=== PATIENT | male | born 1930 | race Caucasian/White ===

== ENCOUNTER 2018-12-29 09:24 | Emergency (ER) | payer OTHER ==
[2018-12-29] MEDS ORDERED: LEVALBUTEROL 1.25 MG/3 ML NEB ONE ×2 (10:07→11:57)
[2018-12-29 10:21] LABS: Absolute Lymphocytes (CBC) 0.7 K/uL (0.7-4.9); Absolute Monocytes 0.7 K/uL (0.1-1.3); Absolute Neutrophil 3.9 K/uL (1.8-8.0); Basophils % 1.1 % (0-1.3); Eosinophils % 6.8 % (0-4.4); Hematocrit 38.6 % (39.6-49.0); Lymphocytes % 12.3 % (15.3-44.8); MPV 8.1 fL (7.6-11.3); Monocytes % 12.5 % (3.3-12.3)
[2018-12-29 10:35] LABS: BUN Blood Urea Nitrogen 24 mg/dL (7-18); Bicarbonate 27 mmol/L (21-32); Glucose Level 123 mg/dL (74-106); NT PRO-BNP 503 pg/mL (<450); Potassium 4.4 mmol/L (3.5-5.1); Sodium Level 141 mmol/L (136-145); Troponin (Emerg Dept Use Only) < 0.02 ng/mL (0.0-0.045)
--- NOTE | 2018-12-29 11:24 | RAD REPORT ---
EXAM DESCRIPTION: RAD - Chest Pa And Lat (2 Views) - 12/29/2018 11:16 am CLINICAL HISTORY: Cough;Dyspnea Chest pain. COMPARISON: Chest Pa And Lat (2 Views) dated 12/26/2018; Chest Pa And Lat (2 Views) dated 10/20/2017; C hest Single View dated 01/05/2016; CHEST SINGLE VIEW dated 05/19/2012 FINDINGS: The lungs are mildly emphysematous but clear. No focal infiltrate detected. The heart is u pper limit of normal in size. No displaced fractures. IMPRESSION: Mild COPD.
[2018-12-29] MEDS ORDERED: METHYLPREDNISOLONE 125 MG INJ ONE (11:57)
--- NOTE | 2018-12-29 13:33 | ER ---
Nurse's Notes [facility] Name: Gamal Reed Age: 88 yrs Sex: Male : 1930 Arrival Date: 12/29/2018 Time: 09:28 Bed 18 Private MD: Emerson Cain T Diagnosis: Wheezing;Dyspnea, unspecified Presentation: 12/29 09:42 Presenting complaint: Patient states: cough and difficulty breathing when laying flat. ss Pt reports he has been seeing his PCP for this and had an X-RAY recently which was negative. Has an appointment with a child welfare consultant next Wednesday, but states that he needs relief before then. Transition of care: patient was not received from another setting of care. Onset of symptoms is unknown. Risk Assessment: Do you want to hurt yourself or someone else? Patient reports no desire to harm self or others. Initial Sepsis Screen: Does the patient meet any 2 criteria? No. Patient's initial sepsis screen is negative. Does the patient have a suspected source of infection? No. Patient's initial sepsis screen is negative. Care prior to arrival: None. 09:42 Method Of Arrival: Ambulatory 09:42 Acuity: KELSY 3 Triage Assessment: 09:45 General: Appears in no apparent distress. comfortable, Behavior is calm, cooperative, bp appropriate for age. Respiratory: Reports shortness of breath cough that is non-productive, Onset: The symptoms/episode began/occurred at an unknown time. the patient has mild shortness of breath. Historical: - Allergies: 09:46 Demerol; ss - PMHx: 09:46 Hypertension; GERD; TIA; ss - PSHx: 09:46 Hernia repair; ss - Immunization history:: Adult Immunizations up to date. - Social history:: Smoking status: . - Ebola Screening: : Patient denies exposure to infectious person Patient denies travel to an Ebola-affected area in the 21 days before illness onset. - Family history:: not pertinent. - Hospitalizations: : No recent hospitalization is reported. Screenin:00 Abuse screen: Denies threats or abuse. Denies injuries from another. Nutritional bp screening: No deficits noted. Tuberculosis screening: No symptoms or risk factors identified. Fall Risk None identified. Assessment: 10:00 General: Appears in no apparent distress. comfortable, Behavior is calm, cooperative, bp appropriate for age. Pain: Denies pain. Neuro: Level of Consciousness is awake, alert, obeys commands, Oriented to person, place, time, situation, Appropriate for age. Cardiovascular: Rhythm is sinus rhythm. Respiratory: Airway is patent Respiratory effort is even, unlabored, Respiratory pattern is regular, symmetrical, Breath sounds with wheezes bilaterally. GI: No signs and/or symptoms were reported involving the gastrointestinal system. : No signs and/or symptoms were reported regarding the genitourinary system. EENT: No deficits noted. Derm: No deficits noted. Musculoskeletal: Circulation, motion, and sensation intact. Range of motion: intact in all extremities. 12:39 Reassessment: ALL CURRENT ORDERS COMPLETED, PT VS STABLE ON MONITOR. bp 13:30 Reassessment: PT D/C HOME AMBULATORY, DX WITH WHEEZING AND DYSPNEA. bp Vital Signs: 09:46 BP 117 / 79; Pulse 95; Resp 18; Temp 97.8(TE); Pulse Ox 99% ; Weight 84.82 kg; Height 5 ss ft. 11 in. (180.34 cm); Pain 0/10; 10:45 BP 121 / 67; Pulse 87; Resp 14; Pulse Ox 99% ; bp 12:39 BP 146 / 77; Pulse 98; Resp 18; Pulse Ox 100% ; bp 13:27 BP 119 / 83; Pulse 97; Resp 18; Pulse Ox 97% ; bp 09:46 Body Mass Index 26.08 (84.82 kg, 180.34 cm) ss ED Course: 09:28 Patient arrived in ED. mr 09:28 Emerson Cain MD is Private Physician. mr 09:35 Jeison Hoff, RN is Primary Nurse. bp 09:41 Jeremy Breaux MD is Attending Physician. rn 09:45 Triage completed. ss 09:46 Arm band placed on right wrist. ss 10:00 Patient has correct armband on for positive identification. Bed in low position. Call bp light in reach. Side rails up X2. 10:00 Inserted saline lock: 20 gauge in right forearm, using aseptic technique. bp 10:06 EKG done, by building energy retrofit technician. reviewed by Jeremy Breaux MD. dt2 11:16 X-ray completed. Patient tolerated procedure well. Patient moved to radiology via sw wheelchair. Patient moved back from radiology. 11:17 XRAY Chest Pa And Lat (2 Views) In Process Unspecified. EDMS 13:28 Darinel Fuentes MD is Referral Physician. rn 13:29 No provider procedures requiring assistance completed. IV discontinued, intact, bp bleeding controlled, No redness/swelling at site. Pressure dressing applied. Administered Medications: 10:00 Drug: Xopenex 1.25 mg Route: Inhalation; bp 11:45 Drug: SOLU-Medrol 125 mg Route: IVP; Site: right forearm; bp 13:27 Follow up: Response: No adverse reaction bp 11:45 Drug: Xopenex (3) 1.25 mg Route: Inhalation; bp Outcome: 13:28 Discharge ordered by MD. rn 13:30 Discharged to home ambulatory. bp 13:30 Condition: stable 13:30 Discharge instructions given to patient, Instructed on discharge instructions, follow up and referral plans. medication usage, Demonstrated understanding of instructions, follow-up care, medications, Prescriptions given X 2. 13:37 Patient left the ED. bp Signatures: Dispatcher [employer] EDOH Wale Casie Jeremy Bowles MD MD rn Smirch, Shelby, RN RN ss Warren, Shannon sw Peltier, Brian, RN RN Cass Sebastian dt2
--- NOTE | 2018-12-29 13:35 | EDPHYS ---
Physician Documentation [facility] Name: Gamal Reed Age: 88 yrs Sex: Male : 1930 Arrival Date: 12/29/2018 Time: 09:28 Bed 18 Private MD: Emerson Cain T ED Physician Jeremy Breaux HPI: 12/29 10:05 This 88 yrs old Male presents to ER via Ambulatory with complaints of Cough, rn Shortness Of Breath. 10:05 The patient or guardian reports cough, difficulty breathing. Onset: The rn symptoms/episode began/occurred 3 week(s) ago. Severity of symptoms: At their worst the symptoms were moderate, in the emergency department the symptoms are unchanged. Modifying factors: The symptoms are alleviated by nothing, the symptoms are aggravated by exertion. The patient has experienced similar episodes in the past. The patient has been recently seen by a physician:. REports 3 weeks of dyspnea on exertion, orthopnea, cough with white sputum, seen by pcp, had negative cxr on Wednesday, continues with dyspnea. Has appt with pulmonology and cardiology coming up but feels winded. . Historical: - Allergies: 09:46 Demerol; ss - PMHx: 09:46 Hypertension; GERD; TIA; ss - PSHx: 09:46 Hernia repair; ss - Immunization history:: Adult Immunizations up to date. - Social history:: Smoking status: . - Ebola Screening: : Patient denies exposure to infectious person Patient denies travel to an Ebola-affected area in the 21 days before illness onset. - Family history:: not pertinent. - Hospitalizations: : No recent hospitalization is reported. ROS: 10:05 Constitutional: Negative for fever, chills, and weight loss, Eyes: Negative for injury, rn pain, redness, and discharge, Neck: Negative for injury, pain, and swelling, Cardiovascular: Negative for chest pain, palpitations Respiratory: + sob and cough, + wheezing Abdomen/GI: Negative for abdominal pain, nausea, vomiting, diarrhea, and constipation, MS/Extremity: Negative for injury and deformity, Skin: Negative for injury, rash, and discoloration, Neuro: Negative for headache, weakness, numbness, tingling, and seizure. Exam: 10:05 Constitutional: This is a well developed, well nourished patient who is awake, alert, rn and in no acute distress. Head/Face: Normocephalic, atraumatic. ENT: MMM, no stridor Cardiovascular: Regular rate and rhythm, No pulse deficits. Respiratory: mild tachypnea with diffuse wheezing, no retractions Abdomen/GI: sof,t non-tender MS/ Extremity: Pulses equal, no cyanosis. Neurovascular intact. Full, normal range of motion. Equal circumference. Neuro: Awake and alert, GCS 15, oriented to person, place, time, and situation. Cranial nerves II-XII grossly intact. Motor strength 5/5 in all extremities. Sensory grossly intact. Vital Signs: 09:46 BP 117 / 79; Pulse 95; Resp 18; Temp 97.8(TE); Pulse Ox 99% ; Weight 84.82 kg; Height 5 ss ft. 11 in. (180.34 cm); Pain 0/10; 10:45 BP 121 / 67; Pulse 87; Resp 14; Pulse Ox 99% ; bp 12:39 BP 146 / 77; Pulse 98; Resp 18; Pulse Ox 100% ; bp 13:27 BP 119 / 83; Pulse 97; Resp 18; Pulse Ox 97% ; bp 09:46 Body Mass Index 26.08 (84.82 kg, 180.34 cm) ss MDM: 09:41 Patient medically screened. rn 13:20 Differential Diagnosis: Bronchitis Upper Respiratory Infection Asthma Exacerbation rn Viral Syndrome Pneumonia Other COPD. Data reviewed: vital signs, nurses notes, lab test result(s), EKG, radiologic studies, and as a result, I will discharge patient. Counseling: I had a detailed discussion with the patient and/or guardian regarding: the historical points, exam findings, and any diagnostic results supporting the discharge/admit diagnosis, the presence of at least one elevated blood pressure reading (>120/80) during this emergency department visit, lab results, radiology results, the need for outpatient follow up, to return to the emergency department if symptoms worsen or persist or if there are any questions or concerns that arise at home. Response to treatment: the patient's symptoms have markedly improved after treatment, and as a result, I will discharge patient. Special discussion: I discussed with the patient/guardian in detail that at this point there is no indication for admission to the hospital. It is understood, however, that if the symptoms persist or worsen the patient needs to return immediately for re-evaluation. Based on the history and exam findings, there is no indication for further emergent testing or inpatient evaluation. I discussed with the patient/guardian the need to see the go go dancer for further evaluation of the symptoms. I discussed with the patient/guardian the need to see the assembler steam and gas turbine for further evaluation of the symptoms. ED course: BNP only 500, no peripheral edema, possibly diastolic dysfunction, has appt with Dr. Gill coming up. Feels better, now ambulatory to bathroom and back without feeling winded, stopped and had conversation with nurse. Patient states weeks of wheezing and dyspnea but feels much better now, has appt with pulmonology in 4 days. Has had albuterol inhaler before. Will dc home with steroid burst and albuterol inhaler with return precautions if gets worse before can follow up. . 12/29 09:50 Order name: CBC with Diff; Complete Time: 10:30 rn 12/29 09:50 Order name: Basic Metabolic Panel; Complete Time: 10:37 rn 12/29 09:50 Order name: N-Terminal Pro-brain Natriuretic Peptide; Complete Time: 10:37 rn 12/29 09:50 Order name: Troponin (emerg Dept Use Only); Complete Time: 10:37 rn 12/29 09:50 Order name: XRAY Chest Pa And Lat (2 Views); Complete Time: 11:26 rn 12/29 09:50 Order name: IV Start; Complete Time: 10:10 rn 12/29 09:50 Order name: EKG; Complete Time: 09:51 rn 12/29 09:50 Order name: EKG - Nurse/Tech; Complete Time: 10:11 rn Administered Medications: 10:00 Drug: Xopenex 1.25 mg Route: Inhalation; bp 11:45 Drug: SOLU-Medrol 125 mg Route: IVP; Site: right forearm; bp 13:27 Follow up: Response: No adverse reaction bp 11:45 Drug: Xopenex (3) 1.25 mg Route: Inhalation; bp Disposition: 12/29/18 13:28 Discharged to Home. Impression: Wheezing, Dyspnea, unspecified. - Condition is Stable. - Discharge Instructions: Shortness of Breath. - Prescriptions for Prednisone 20 mg Oral Tablet - take 3 tablet by ORAL route once daily for 5 days; 15 tablet. Albuterol Sulfate 90 mcg/actuation - inhale 1-2 puff by INHALATION route every 4-6 hours; 1 Inhaler. - Medication Reconciliation Form, Thank You Letter, Antibiotic Education, Prescription Opioid Use form. - Follow up: Darinel Fuentes MD; When: 2 - 3 days; Reason: Recheck today's complaints, Re-evaluation by your physician. - Problem is an acute exacerbation. - Symptoms have improved. Signatures: Dispatcher [employer] EDKS Jeremy Breaux MD MD rn Smirch, Shelby, RN RN ss Peltier, Brian, RN RN bp Corrections: (The following items were deleted from the chart) 13:37 13:28 12/29/2018 13:28 Discharged to Home. Impression: Wheezing; Dyspnea, unspecified. bp Condition is Stable. Forms are Medication Reconciliation Form, Thank You Letter, Antibiotic Education, Prescription Opioid Use. Follow up: Darinel Fuentes; When: 2 - 3 days; Reason: Recheck today's complaints, Re-evaluation by your physician. Problem is an acute exacerbation. Symptoms have improved. rn
[2018-12-29 13:57] VITALS: TEMP 97.8
[2018-12-29 14:01] VITALS: BP 119/83; O2SAT 97
== END 2018-12-29 13:37 | disposition home or self-care (01) ==
LOC: ER 09:24
DX: R06.00 Dyspnea, unspecified (principal); I10 Essential (primary) hypertension; Z88.5 Allergy status to narcotic agent
CPT/HCPCS: 93005; 85025; 80048; 36415; 84484; 83880; 71046; 96374; 99285; J2930

== ENCOUNTER 2019-01-06 09:21 | Emergency (ER) | payer OTHER ==
--- NOTE | 2019-01-06 11:16 | RAD REPORT ---
EXAM DESCRIPTION: Charlene Single View01/06/2019 11:03 am CLINICAL HISTORY: Cough COMPARISON: December 2018 FINDINGS: Right hilum is indistinct. Otherwise lungs appear clear of acute infiltrate. The heart is normal size IMPRESSION: Right hilum is indistinct. This may indicate a mild infiltrate or be secondary to confl uence of normal structures. PA and lateral chest series is recommended
[2019-01-06] MEDS ORDERED: METHYLPREDNISOLONE 125 MG INJ ONE (11:26)
[2019-01-06] MEDS ORDERED: LEVALBUTEROL 1.25 MG/3 ML NEB ONE (11:26)
[2019-01-06 11:29] LABS: Absolute Monocytes 1.3 K/uL (0.1-1.3); Absolute Neutrophil 5.2 K/uL (1.8-8.0); Basophils % 0.8 % (0-1.3); Eosinophils % 9.6 % (0-4.4); Hematocrit 38.1 % (39.6-49.0); Lymphocytes % 11.6 % (15.3-44.8); MPV 8.5 fL (7.6-11.3); Monocytes % 15.9 % (3.3-12.3); RBC Red Blood Cell Count 4.34 M/uL (4.33-5.43)
[2019-01-06 11:33] LABS: Protime INR 0.93
[2019-01-06 11:54] LABS: ALT/SGPT 22 U/L (12-78); AST/SGOT 18 U/L (15-37); Alkaline Phosphatase 74 U/L (45-117); BUN Blood Urea Nitrogen 21 mg/dL (7-18); Bicarbonate 30 mmol/L (21-32); Bilirubin Direct 0.2 mg/dL (0-0.2); Bilirubin Total 0.5 mg/dL (0.2-1.0); CKMB Creatine Kinase MB 2.7 ng/mL (0.3-3.6); Creatine Phosphokinase 112 U/L (39-308); Glucose Level 79 mg/dL (74-106); Lipase 133 U/L (73-393); Potassium 4.1 mmol/L (3.5-5.1); Protein, Total 6.7 g/dL (6.4-8.2); Sodium Level 142 mmol/L (136-145); Troponin (Emerg Dept Use Only) < 0.02 ng/mL (0.0-0.045)
--- NOTE | 2019-01-06 14:33 | ER ---
Nurse's Notes [facility] Name: Gamal Reed Age: 88 yrs Sex: Male : 1930 Arrival Date: 01/06/2019 Time: 09:23 Bed 7 Private MD: Emerson Cain T Diagnosis: Cough;Bronchitis, not specified as acute or chronic Presentation: 01/06 09:40 Presenting complaint: Patient states: was seen here less than a week ago for similar sg symptoms as today. I have had shortness of breath that gets worse when Im walking, productive cough, denies fever/chills at this time, no nausea or vomiting reported. Transition of care: patient was not received from another setting of care. Onset of symptoms was January 06, 2019. Risk Assessment: Do you want to hurt yourself or someone else? Patient reports no desire to harm self or others. Initial Sepsis Screen: Does the patient meet any 2 criteria? RR > 20 per min. HR > 90 bpm. Yes Does the patient have a suspected source of infection? Yes: Productive cough/pneumonia. Care prior to arrival: None. 09:40 Method Of Arrival: Ambulatory sg 09:40 Acuity: KELSY 3 sg Triage Assessment: 09:50 General: Appears in no apparent distress. comfortable, Behavior is calm, cooperative, bp appropriate for age. Pain: Denies pain. Respiratory: Reports shortness of breath cough that is Onset: The symptoms/episode began/occurred 1 WEEK, the patient has mild shortness of breath. Historical: - Allergies: 09:46 Demerol; sg - Home Meds: 09:46 Plavix 75 mg Oral tab 1 tab once daily [Active]; Prevacid 30 mg Oral cpDR 1 cap 3 times sg per day [Active]; Synthroid 75 mcg Oral tab 1 tab once daily [Active]; - PMHx: 09:46 GERD; Hypertension; TIA; sg - PSHx: 09:46 Hernia repair; sg - Immunization history:: Adult Immunizations up to date. - Social history:: Smoking status: Patient/guardian denies using tobacco, Smoking status: Patient/guardian denies using tobacco. - Ebola Screening: : Patient negative for fever greater than or equal to 101.5 degrees Fahrenheit, and additional compatible Ebola Virus Disease symptoms Patient denies exposure to infectious person Patient denies travel to an Ebola-affected area in the 21 days before illness onset No symptoms or risks identified at this time Patient negative for fever greater than or equal to 101.5 degrees Fahrenheit, and additional compatible Ebola Virus Disease symptoms Patient denies exposure to infectious person Patient denies travel to an Ebola-affected area in the 21 days before illness onset No symptoms or risks identified at this time. Screenin:56 Abuse screen: Denies threats or abuse. Denies injuries from another. Nutritional bp screening: No deficits noted. Tuberculosis screening: No symptoms or risk factors identified. Fall Risk None identified. Assessment: 09:51 General: Appears in no apparent distress. comfortable, Behavior is cooperative, bp appropriate for age, anxious. Pain: Denies pain. Neuro: Level of Consciousness is awake, alert, obeys commands, Oriented to person, place, time, situation, Appropriate for age. Cardiovascular: Rhythm is sinus rhythm. Respiratory: Airway is patent Respiratory effort is even, unlabored, Breath sounds with crackles. GI: No signs and/or symptoms were reported involving the gastrointestinal system. : No signs and/or symptoms were reported regarding the genitourinary system. EENT: Reports nasal congestion. Derm: No deficits noted. Musculoskeletal: Circulation, motion, and sensation intact. Capillary refill. 12:00 Reassessment: ALL CURRENT ORDERS COMPLETED, PT NOTES SOME RELIEF OF S/S. RESULTS bp PENDING. 13:30 Reassessment: ALL CURRENT ORDERS COMPLETED, RESULTS AND DISPO PENDING. bp 15:05 Reassessment: PT D/C HOME AMBULATORY WITH FAMILY, DX WITH BRONCHITIS. bp Vital Signs: 09:46 BP 136 / 69; Pulse 90; Resp 22; Pulse Ox 96% on R/A; sg 09:46 Weight 86.18 kg; Height 6 ft. (182.88 cm); bp 10:00 BP 140 / 61; Pulse 81; Resp 28; Pulse Ox 98% on R/A; bp 11:00 BP 149 / 71; Pulse 78; Resp 17; Pulse Ox 100% ; bp 12:00 BP 127 / 63; Pulse 90; Resp 25; Pulse Ox 97% ; bp 13:00 BP 133 / 61; Pulse 90; Resp 24; Pulse Ox 96% ; bp 09:46 Body Mass Index 25.77 (86.18 kg, 182.88 cm) bp ED Course: 09:23 Patient arrived in ED. ag5 09:23 Emerson Cain MD is Private Physician. ag5 09:23 Brad Stanley MD is Attending Physician. kdr 09:44 Triage completed. sg 09:44 Arm band placed on. sg 09:45 Jeison Hoff, RN is Primary Nurse. bp 09:56 Patient has correct armband on for positive identification. Bed in low position. Call bp light in reach. Side rails up X2. 11:03 X-ray completed. Portable x-ray completed in exam room. jr1 11:04 Chest Single View XRAY In Process Unspecified. EDMS 11:05 Inserted saline lock: 20 gauge in right forearm, using aseptic technique. Blood bp collected. 14:12 Patient moved to radiology via wheelchair. 1 14:14 Patient moved back from radiology. 1 14:15 Chest Pa And Lat (2 Views) XRAY In Process Unspecified. EDMS 14:31 Emerson Cain MD is Referral Physician. kdr 15:06 No provider procedures requiring assistance completed. IV discontinued, intact, bp bleeding controlled, No redness/swelling at site. Pressure dressing applied. Administered Medications: 11:00 Drug: Xopenex (3) 1.25 mg Route: Inhalation; bp 11:00 Drug: SOLU-Medrol 125 mg Route: IVP; Site: right forearm; bp 15:07 Follow up: Response: No adverse reaction bp Outcome: 14:32 Discharge ordered by . kdr 15:06 Discharged to home ambulatory, with family. bp 15:06 Condition: stable 15:06 Discharge instructions given to patient, Instructed on discharge instructions, follow up and referral plans. medication usage, Demonstrated understanding of instructions, follow-up care, medications, Prescriptions given X 3. 15:08 Patient left the ED. bp Signatures: Dispatcher [employer] EDMS Aníbal Otero RN RN Brad Stanley MD MD [facility] Antionette Leal 1 Venita Jimenez 1 Jeison Hoff, RN RN bp Beverly Smith ag5
--- NOTE | 2019-01-06 14:33 | EDPHYS ---
Physician Documentation [facility] Name: Gamal Reed Age: 88 yrs Sex: Male : 1930 Arrival Date: 01/06/2019 Time: 09:23 Bed 7 Private MD: Emerson Cain T ED Physician Brad Stanley HPI: 01/06 11:31 This 88 yrs old Male presents to ER via Ambulatory with complaints of Cough, kdr Wheezing > 1 Year, Shortness Of Breath. 11:31 The patient or guardian reports cough, described as moderate, described as severe, with kdr productive sputum, that is yellow, difficulty breathing. Onset: The symptoms/episode began/occurred This has been an ongoing problem for more than a year and is now getting worse. Dr. Fuentes had seem him last week for a routine visit and had adjusted his medications but he feels he is getting worse, can't sleep and can't take it any more. He was seen here recently and given the options for admission but he declined at that time per the family. Severity of symptoms: At their worst the symptoms were moderate, in the emergency department the symptoms. Modifying factors: The symptoms are alleviated by nothing, the symptoms are aggravated by laying down and general activity. Associated signs and symptoms: Pertinent positives: this patient has no pertinent positive symptoms. The patient has experienced similar episodes in the past, chronically. The patient has been recently seen by a physician: Dr. Fuentes last week. Historical: - Allergies: 09:46 Demerol; sg - Home Meds: 09:46 Plavix 75 mg Oral tab 1 tab once daily [Active]; Prevacid 30 mg Oral cpDR 1 cap 3 times sg per day [Active]; Synthroid 75 mcg Oral tab 1 tab once daily [Active]; - PMHx: 09:46 GERD; Hypertension; TIA; sg - PSHx: 09:46 Hernia repair; sg - Immunization history:: Adult Immunizations up to date. - Social history:: Smoking status: Patient/guardian denies using tobacco, Smoking status: Patient/guardian denies using tobacco. - Ebola Screening: : Patient negative for fever greater than or equal to 101.5 degrees Fahrenheit, and additional compatible Ebola Virus Disease symptoms Patient denies exposure to infectious person Patient denies travel to an Ebola-affected area in the 21 days before illness onset No symptoms or risks identified at this time Patient negative for fever greater than or equal to 101.5 degrees Fahrenheit, and additional compatible Ebola Virus Disease symptoms Patient denies exposure to infectious person Patient denies travel to an Ebola-affected area in the 21 days before illness onset No symptoms or risks identified at this time. ROS: 11:31 Constitutional: Negative for fever, chills, and weight loss, Eyes: Negative for injury, kdr pain, redness, and discharge, ENT: Negative for injury, pain, and discharge, Neck: Negative for injury, pain, and swelling, Cardiovascular: Negative for chest pain, palpitations, and edema, Abdomen/GI: Negative for abdominal pain, nausea, vomiting, diarrhea, and constipation, Back: Negative for injury and pain, : Negative for injury, bleeding, discharge, and swelling, MS/Extremity: Negative for injury and deformity, Skin: Negative for injury, rash, and discoloration, Neuro: Negative for headache, weakness, numbness, tingling, and seizure activity. Psych: Negative for depression, anxiety, suicide ideation, homicidal ideation, and hallucinations, Allergy/Immunology: Negative for hives, rash, and allergies, Endocrine: Negative for neck swelling, polydipsia, polyuria, polyphagia, and marked weight changes, Hematologic/Lymphatic: Negative for swollen nodes, abnormal bleeding, and unusual bruising. 11:31 Respiratory: Positive for cough, with yellow sputum, dyspnea on exertion, shortness of breath, wheezing, Negative for hemoptysis, orthopnea, pleurisy. Exam: 11:31 Constitutional: This is a well developed, well nourished patient who is awake, alert, kdr and in no acute distress. Head/Face: Normocephalic, atraumatic. Eyes: Pupils equal round and reactive to light, extra-ocular motions intact. Lids and lashes normal. Conjunctiva and sclera are non-icteric and not injected. Cornea within normal limits. Periorbital areas with no swelling, redness, or edema. Neck: Trachea midline, no thyromegaly or masses palpated, and no cervical lymphadenopathy. Supple, full range of motion without nuchal rigidity, or vertebral point tenderness. No Meningismus. Chest/axilla: Normal chest wall appearance and motion. Nontender with no deformity. No lesions are appreciated. Cardiovascular: Regular rate and rhythm with a normal S1 and S2. No gallops, murmurs, or rubs. Normal PMI, no JVD. No pulse deficits. Abdomen/GI: Soft, non-tender, with normal bowel sounds. No distension or tympany. No guarding or rebound. No evidence of tenderness throughout. Back: No spinal tenderness. No costovertebral tenderness. Full range of motion. Skin: Warm, dry with normal turgor. Normal color with no rashes, no lesions, and no evidence of cellulitis. MS/ Extremity: Pulses equal, no cyanosis. Neurovascular intact. Full, normal range of motion. Neuro: Awake and alert, GCS 15, oriented to person, place, time, and situation. Cranial nerves II-XII grossly intact. Motor strength 5/5 in all extremities. Sensory grossly intact. Cerebellar exam normal. Normal gait. Psych: Awake, alert, with orientation to person, place and time. Behavior, mood, and affect are within normal limits. 11:31 Respiratory: the patient does not display signs of respiratory distress, Respirations: normal, Breath sounds: wheezing: inspiratory expiratory that is moderate. Vital Signs: 09:46 BP 136 / 69; Pulse 90; Resp 22; Pulse Ox 96% on R/A; sg 09:46 Weight 86.18 kg; Height 6 ft. (182.88 cm); bp 10:00 BP 140 / 61; Pulse 81; Resp 28; Pulse Ox 98% on R/A; bp 11:00 BP 149 / 71; Pulse 78; Resp 17; Pulse Ox 100% ; bp 12:00 BP 127 / 63; Pulse 90; Resp 25; Pulse Ox 97% ; bp 13:00 BP 133 / 61; Pulse 90; Resp 24; Pulse Ox 96% ; bp 09:46 Body Mass Index 25.77 (86.18 kg, 182.88 cm) bp MDM: 14:32 Patient medically screened. kdr 17:57 Data reviewed: vital signs, nurses notes, lab test result(s), radiologic studies. kdr Counseling: I had a detailed discussion with the patient and/or guardian regarding: the historical points, exam findings, and any diagnostic results supporting the discharge/admit diagnosis, lab results, radiology results, the need for outpatient follow up. Physician consultation: Darinel Fuentes MD and will see patient in office, in 2-3 days, next week. 01/06 10:45 Order name: Basic Metabolic Panel; Complete Time: 12:27 kdr 01/06 10:45 Order name: Blood Culture Adult (2) kdr 01/06 10:45 Order name: CBC with Diff; Complete Time: 12:27 kdr 01/06 10:45 Order name: Ckmb; Complete Time: 12:27 kdr 01/06 10:45 Order name: CPK; Complete Time: 12:27 kdr 01/06 10:45 Order name: Lactate; Complete Time: 12:27 kdr 01/06 10:45 Order name: LFT's; Complete Time: 12:27 kdr 01/06 10:45 Order name: Lipase; Complete Time: 12:27 kdr 01/06 10:45 Order name: Procalcitonin; Complete Time: 12:27 kdr 01/06 10:45 Order name: Protime (+inr); Complete Time: 12:27 kdr 01/06 10:45 Order name: Ptt, Activated; Complete Time: 12:27 kdr 01/06 10:45 Order name: Troponin (emerg Dept Use Only); Complete Time: 12:27 kdr 01/06 10:45 Order name: Urine Microscopic Only kdr 01/06 14:29 Order name: Urine Dipstick--Ancillary (enter results) eb 01/06 10:45 Order name: Chest Single View XRAY; Complete Time: 12:27 kdr 01/06 10:45 Order name: Accucheck; Complete Time: 11:24 kdr 01/06 10:45 Order name: Cardiac monitoring; Complete Time: 10:54 kdr 01/06 10:45 Order name: EKG - Nurse/Tech; Complete Time: 11:23 kdr 01/06 10:45 Order name: IV Saline Lock - Large Bore; Complete Time: 11:23 kdr 01/06 10:45 Order name: Labs collected and sent; Complete Time: 11:23 kdr 01/06 10:45 Order name: O2 Per Protocol; Complete Time: 10:54 kdr 01/06 10:45 Order name: O2 Sat Monitoring; Complete Time: 10:55 kdr 01/06 12:28 Order name: Chest Pa And Lat (2 Views) XRAY kdr Administered Medications: 11:00 Drug: Xopenex (3) 1.25 mg Route: Inhalation; bp 11:00 Drug: SOLU-Medrol 125 mg Route: IVP; Site: right forearm; bp 15:07 Follow up: Response: No adverse reaction bp Disposition: 01/06/19 14:32 Discharged to Home. Impression: Cough, Bronchitis, not specified as acute or chronic. - Condition is Stable. - Discharge Instructions: Acute Bronchitis, [id number]. - Prescriptions for Promethazine VC- Codeine 6.25-5-10 mg/5 mL Oral syrup - take 5 milliliter by ORAL route every 4 hours as needed, not to exceed 30 mL in 24 hours; 200 milliliter. Xopenex HFA 45 mcg/actuation Inhalation HFA aerosol inhaler - inhale 2 puff by INHALATION route every 4 hours As needed; 2 Cartridge. Tessalon Perles 100 mg Oral Capsule - take 1 capsule by ORAL route every 8 hours As needed; 15 capsule. - Medication Reconciliation Form, Thank You Letter, Prescription Opioid Use form. - Follow up: Emerson Cain MD; When: 2 - 3 days; Reason: If symptoms return, Further diagnostic work-up, Recheck today's complaints, Continuance of care, Re-evaluation by your physician. - Problem is an ongoing problem. - Symptoms have improved. - Notes: Follow-up with Dr. Fuentes at the next available appointment Signatures: Dispatcher [employer] EDMS Aníbal Otero, RN RN sg Brad Stanley MD MD kdr Jeison Hoff, RN RN bp Corrections: (The following items were deleted from the chart) 15:08 14:32 01/06/2019 14:32 Discharged to Home. Impression: Cough; Bronchitis, not specified bp as acute or chronic. Condition is Stable. Forms are Medication Reconciliation Form, Thank You Letter, Antibiotic Education, Prescription Opioid Use. Follow up: Emerson Cain; When: 2 - 3 days; Reason: If symptoms return, Further diagnostic work-up, Recheck today's complaints, Continuance of care, Re-evaluation by your physician. Problem is an ongoing problem. Symptoms have improved. kdr
--- NOTE | 2019-01-06 14:35 | RAD REPORT ---
EXAM DESCRIPTION: RAD - Chest Pa And Lat (2 Views) - 01/06/2019 2:17 pm CLINICAL HISTORY: Cough, shortness of breath, abnormal portable chest film COMPARISON: Portable chest January 06, two view chest examination December 29, December 26 2018 and October 16 TECHNIQUE: PA and lateral views of the chest were obtained. FINDINGS: The lungs are clear of a peripheral mass or infiltrate. No failure or volume overload. The indistinct right hilum seen on the portable study earlier in the day is less pronounced on the curre nt examination. 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 Comparing back to September 2017, no evidence for change at the right hilum. Left hilum is unremark able. Trachea is midline. Heart size is normal and central vasculature is within normal limits. No pleural effusion or pneu mothorax seen. No acute bony finding noted. No aortic abnormality. IMPRESSION: No acute cardiopulmonary process. Right hilum has a normal appearance on two view imaging. No identifiable change comparing back to Sep.
[2019-01-06 15:04] LABS: Urine Amorphous Sediment 2+ /HPF (NONE SEEN); Urine Bacteria <20 /HPF (NONE SEEN); Urine Culture Reflex Order NOT NEEDED; Urine Mucus 1+ /HPF (NONE SEEN); Urine RBC <5 /HPF (NONE SEEN)
[2019-01-06 15:04] LABS: Urine Blood NEGATIVE (NEG); Urine Glucose NEGATIVE (NEG); Urine Protein TRACE (NEG); Urine Specific Gravity 1.015 (1.005-1.030); Urine pH 7.5 (5.0-7.0)
[2019-01-06 15:20] VITALS: BP 133/61; O2SAT 96
== END 2019-01-06 15:08 | disposition home or self-care (01) ==
LOC: ER 09:21
DX: J40 Bronchitis, not specified as acute or chronic (principal); I10 Essential (primary) hypertension; Z79.01 Long term (current) use of anticoagulants; Z88.5 Allergy status to narcotic agent
CPT/HCPCS: 87040; 85025; 80048; 36415; 82550; 85610; 80076; 83605; 85730; 84484; 82553; 83690; 84145; 71045; 71046; 96374; 99285; J2930; 81003; 81015

== ENCOUNTER 2019-01-10 21:33 | Observation (INO) | payer OTHER ==
[2019-01-10] MEDS ORDERED: NA CHLORIDE 0.9% 1,000 ML ONE (22:56)
[2019-01-10] MEDS ORDERED: LEVALBUTEROL 1.25 MG/3 ML NEB ONE (22:56)
[2019-01-10 23:15] LABS: Absolute Lymphocytes (CBC) 0.9 K/uL (0.7-4.9); Absolute Monocytes 1.2 K/uL (0.1-1.3); Absolute Neutrophil 8.4 K/uL (1.8-8.0); Basophils % 0.7 % (0-1.3); Eosinophils % 6.3 % (0-4.4); Hematocrit 41.6 % (39.6-49.0); Lymphocytes % 8.3 % (15.3-44.8); MPV 8.6 fL (7.6-11.3); Monocytes % 10.8 % (3.3-12.3); RBC Red Blood Cell Count 4.68 M/uL (4.33-5.43)
[2019-01-10 23:16] LABS: Protime INR 0.89
[2019-01-10 23:17] LABS: Blood O2 Saturation 99.5 % (92-98.5)
[2019-01-10 23:30] LABS: ALT/SGPT 27 U/L (12-78); AST/SGOT 26 U/L (15-37); Albumin 3.3 g/dL (3.4-5.0); Alkaline Phosphatase 89 U/L (45-117); BUN Blood Urea Nitrogen 21 mg/dL (7-18); Bicarbonate 25 mmol/L (21-32); Bilirubin Direct 0.2 mg/dL (0-0.2); Bilirubin Total 0.6 mg/dL (0.2-1.0); Glucose Level 98 mg/dL (74-106); Magnesium 2.2 mg/dL (1.8-2.4); NT PRO-BNP 1057 pg/mL (<450); Potassium 4.4 mmol/L (3.5-5.1); Protein, Total 7.4 g/dL (6.4-8.2); Sodium Level 135 mmol/L (136-145); Troponin (Emerg Dept Use Only) < 0.02 ng/mL (0.0-0.045)
--- NOTE | 2019-01-11 00:40 | ER ---
Nurse's Notes [facility] Name: Gamal Reed Age: 88 yrs Sex: Male : 1930 Arrival Date: 01/10/2019 Time: 21:35 Bed 8 Private MD: Emerson Cain T Diagnosis: Dyspnea. Chronic bronchitis. Failed outpatient therapy Presentation: 01/10 21:50 Presenting complaint: Patient states: SOB and cough X1 months. pt stated he has been in ak1 and out of ER and PCP offices and should have gotten a neb machine but Dr. Fuentes did not call it in. Transition of care: patient was not received from another setting of care. Onset of symptoms is unknown. Risk Assessment: Do you want to hurt yourself or someone else? Patient reports no desire to harm self or others. Care prior to arrival: None. 21:50 Method Of Arrival: Ambulatory ak 21:50 Acuity: KELSY 3 ak1 22:02 Initial Sepsis Screen: Does the patient meet any 2 criteria? RR > 20 per min. HR > 90 jd3 bpm. No. Patient's initial sepsis screen is negative. Does the patient have a suspected source of infection? No. Patient's initial sepsis screen is negative. Triage Assessment: 21:51 General: Appears uncomfortable, Behavior is calm, cooperative. ak1 22:01 Respiratory: Reports shortness of breath at rest Onset: The symptoms/episode jd3 began/occurred pt stated "I have dealt with this problem for a couple of months now.", the patient has mild shortness of breath. Historical: - Allergies: 21:51 Demerol; ak1 21:51 Albuterol; ak1 - Home Meds: 21:51 Plavix 75 mg Oral tab 1 tab once daily [Active]; Prevacid 30 mg Oral cpDR 1 cap 3 times ak1 per day [Active]; Synthroid 75 mcg Oral tab 1 tab once daily [Active]; - PMHx: 21:51 GERD; HTN, GERD, TIA 2012; Hypertension; TIA; ak1 - PSHx: 21:51 Hernia repair; ak1 - Immunization history:: Adult Immunizations unknown. - Social history:: Smoking status: Patient/guardian denies using tobacco, the patient reports quitting approximately 40 years ago. - Ebola Screening: : No symptoms or risks identified at this time. Screenin:00 Abuse screen: Denies threats or abuse. Nutritional screening: No deficits noted. jd3 Tuberculosis screening: No symptoms or risk factors identified. Fall Risk Ambulatory Aid- None/Bed Rest/Nurse Assist (0 pts). Gait- Normal/Bed Rest/Wheelchair (0 pts) Mental Status- Oriented to own ability (0 pts). Total Hernandez Fall Scale indicates No Risk (0-24 pts). Assessment: 21:59 General: Appears uncomfortable, Behavior is calm, cooperative, appropriate for age. jd3 Pain: Denies pain. Neuro: Level of Consciousness is awake, alert, obeys commands, Oriented to person, place, time, situation, Appropriate for age. Cardiovascular: Heart tones present Capillary refill < 3 seconds Patient's skin is warm and dry. Rhythm is irregular. Respiratory: Reports cough that is non-productive, Airway is patent Respiratory effort is labored, shallow, Respiratory pattern is symmetrical, tachypnea Breath sounds with wheezes bilaterally. GI: No signs and/or symptoms were reported involving the gastrointestinal system. : No signs and/or symptoms were reported regarding the genitourinary system. EENT: No signs and/or symptoms were reported regarding the EENT system. Derm: Skin is intact, Skin is dry, Skin is normal, Skin temperature is warm. Musculoskeletal: Circulation, motion, and sensation intact. Range of motion: intact in all extremities. 22:32 Reassessment: Patient appears in no apparent distress at this time. Patient and/or jd3 family updated on plan of care and expected duration. Pain level reassessed. Patient is alert, oriented x 3, equal unlabored respirations, skin warm/dry/pink. 23:30 Reassessment: Patient appears in no apparent distress at this time. Patient and/or jd3 family updated on plan of care and expected duration. Pain level reassessed. Patient is alert, oriented x 3, equal unlabored respirations, skin warm/dry/pink. 01/11 00:26 Reassessment: Patient appears in no apparent distress at this time. Patient and/or jd3 family updated on plan of care and expected duration. Pain level reassessed. Patient is alert, oriented x 3, equal unlabored respirations, skin warm/dry/pink. 01:42 Reassessment: Patient appears in no apparent distress at this time. Patient and/or jd3 family updated on plan of care and expected duration. Pain level reassessed. Patient is alert, oriented x 3, equal unlabored respirations, skin warm/dry/pink. report called to nurse Sylvie for room 412. Vital Signs: 01/10 21:50 BP 139 / 114; Pulse 109; Resp 24; Temp 97.8; Pulse Ox 96% on R/A; Weight 84.37 kg (R); ak1 Height 6 ft. 0 in. (182.88 cm) (R); Pain 0/10; 22:32 BP 157 / 78; Pulse 90; Resp 23 S; Pulse Ox 100% on R/A; jd3 01/11 00:00 BP 120 / 73; Pulse 107; Resp 23 S; Pulse Ox 97% on R/A; jd3 00:31 BP 105 / 74; Pulse 104; Resp 24 S; Pulse Ox 95% on R/A; Pain 0/10; jd3 01:42 BP 163 / 93; Pulse 107; Resp 24 S; Pulse Ox 95% on R/A; jd3 01/10 21:50 Body Mass Index 25.23 (84.37 kg, 182.88 cm) ak1 ED Course: 01/10 21:35 Patient arrived in ED. am2 21:35 Emerson Cain MD is Private Physician. am2 21:51 Triage completed. ak1 21:51 Arm band placed on Patient placed in an exam room, on a stretcher, Patient notified of ak1 wait time. 21:55 Arthur Walters RN is Primary Nurse. jd3 22:00 Patient has correct armband on for positive identification. Placed in gown. Bed in low jd3 position. Call light in reach. Side rails up X 1. Adult w/ patient. 22:24 Alex Taveras MD is Attending Physician. pkl 22:55 Inserted saline lock: 20 gauge in right antecubital area, using aseptic technique. jd3 Blood collected. placed by [facility]. 23:16 X-ray completed. Portable x-ray completed in exam room. Patient tolerated procedure kw well. 23:17 XRAY Chest (1 view) In Process Unspecified. EDMS 01/11 00:38 Kierra Interiano MD is Hospitalizing Provider. pkl 02:10 No provider procedures requiring assistance completed. Patient admitted, IV remains in jd3 place. Administered Medications: 01/10 23:00 Drug: NS 0.9% 1000 ml Route: IV; Rate: 100 ml/hr; Site: right antecubital; [facility] 01/11 02:09 Follow up: Response: No adverse reaction; IV Status: Infusion continued upon admission j 01/10 23:00 Drug: Xopenex (3) 1.25 mg Route: Inhalation; d3 01/11 00:37 Follow up: Response: No adverse reaction jd3 Outcome: 00:40 Decision to Hospitalize by Provider. pkl 02:00 Condition: stable jd3 02:00 Instructed on the need for admit, Demonstrated understanding of instructions. 02:00 Admitted to Med/surg accompanied by tech, via wheelchair, room 412, with chart, Report jd3 called to Sylvie MATTA 02:02 Patient left the ED. j Signatures: Dispatcher [employer] EDMS Alex Taveras MD MD pkl Juanita Cordero Amber RN RN Sherry Deras Jonathon, RN RN jd3 Corrections: (The following items were deleted from the chart) 00:26 01/10 21:59 Respiratory: Airway is patent Respiratory effort is labored, shallow, jd3 Respiratory pattern is symmetrical, tachypnea Breath sounds with wheezes bilaterally. j 01/11 00:31 04 21:59 Cardiovascular: Heart tones present Capillary refill < 3 seconds Patient's jd3 skin is warm and dry. j 01/11 02:00 Instructed on the need for admit, Demonstrated understanding of instructions, j j 02:00 Admitted to Med/surg jd3 jd3
--- NOTE | 2019-01-11 00:40 | EDPHYS ---
Physician Documentation [facility] Name: Gamal Reed Age: 88 yrs Sex: Male : 1930 Arrival Date: 01/10/2019 Time: 21:35 Bed 8 Private MD: Emerson Cain T ED Physician Alex Taveras HPI: 01/10 22:37 This 88 yrs old Male presents to ER via Ambulatory with complaints of pkl Shortness Of Breath. 22:37 The patient has shortness of breath at rest. Onset: The symptoms/episode began/occurred pkl 1 month(s) ago, and became worse today. Associated signs and symptoms: Pertinent positives: productive cough. Patient said he has been in and out of PCP office and ER for 1 month. Historical: - Allergies: 21:51 Demerol; ak1 21:51 Albuterol; ak1 - Home Meds: 21:51 Plavix 75 mg Oral tab 1 tab once daily [Active]; Prevacid 30 mg Oral cpDR 1 cap 3 times ak1 per day [Active]; Synthroid 75 mcg Oral tab 1 tab once daily [Active]; - PMHx: 21:51 GERD; HTN, GERD, TIA 2012; Hypertension; TIA; ak1 - PSHx: 21:51 Hernia repair; ak1 - Immunization history:: Adult Immunizations unknown. - Social history:: Smoking status: Patient/guardian denies using tobacco, the patient reports quitting approximately 40 years ago. - Ebola Screening: : No symptoms or risks identified at this time. ROS: 22:37 Eyes: Negative for injury, pain, redness, and discharge, ENT: Negative for injury, pkl pain, and discharge, Neck: Negative for injury, pain, and swelling, Cardiovascular: Negative for chest pain, palpitations, and edema. 22:37 Respiratory: Positive for cough, with yellow sputum, shortness of breath, wheezing. 22:37 Abdomen/GI: Negative for abdominal pain, nausea, vomiting, and diarrhea. 22:37 Back: Negative for acute changes. 22:37 : Negative for urinary symptoms. 22:37 MS/extremity: Negative for acute changes. 22:37 Skin: Negative for rash. 22:37 Neuro: Negative for altered mental status. Exam: 22:37 Head/Face: Normocephalic, atraumatic. Eyes: Pupils equal round and reactive to light, pkl extra-ocular motions intact. Lids and lashes normal. Conjunctiva and sclera are non-icteric and not injected. Cornea within normal limits. Periorbital areas with no swelling, redness, or edema. ENT: Nares patent. No nasal discharge, no septal abnormalities noted. Tympanic membranes are normal and external auditory canals are clear. Oropharynx with no redness, swelling, or masses, exudates, or evidence of obstruction, uvula midline. Mucous membranes moist. Neck: Trachea midline, no thyromegaly or masses palpated, and no cervical lymphadenopathy. Supple, full range of motion without nuchal rigidity, or vertebral point tenderness. No Meningismus. Chest/axilla: Normal chest wall appearance and motion. Nontender with no deformity. No lesions are appreciated. Cardiovascular: Regular rate and rhythm with a normal S1 and S2. No gallops, murmurs, or rubs. Normal PMI, no JVD. No pulse deficits. 22:37 Respiratory: moderate respiratory distress is noted, Respirations: labored breathing, that is moderate, Breath sounds: rales, that are moderate, are scattered, bronchial sounds, that are moderate, are scattered. 22:37 Abdomen/GI: Bowel sounds: normal, Palpation: abdomen is soft and non-tender, in all quadrants. 22:37 Back: Exam negative for acute changes. 22:37 : Exam negative for acute changes. 22:37 Musculoskeletal/extremity: Exam is negative for acute changes. 22:37 Skin: Exam negative for rash. 22:37 Neuro: Orientation: is normal, Mentation: is normal, Cranial nerves: grossly normal, Motor: is normal. Vital Signs: 21:50 BP 139 / 114; Pulse 109; Resp 24; Temp 97.8; Pulse Ox 96% on R/A; Weight 84.37 kg (R); ak1 Height 6 ft. 0 in. (182.88 cm) (R); Pain 0/10; 22:32 BP 157 / 78; Pulse 90; Resp 23 S; Pulse Ox 100% on R/A; jd3 01/11 00:00 BP 120 / 73; Pulse 107; Resp 23 S; Pulse Ox 97% on R/A; jd3 00:31 BP 105 / 74; Pulse 104; Resp 24 S; Pulse Ox 95% on R/A; Pain 0/10; jd3 01:42 BP 163 / 93; Pulse 107; Resp 24 S; Pulse Ox 95% on R/A; jd3 01/10 21:50 Body Mass Index 25.23 (84.37 kg, 182.88 cm) ak1 MDM: 01/10 22:24 Patient medically screened. pkl 01/11 00:37 Data reviewed: vital signs, nurses notes, lab test result(s), EKG, radiologic studies, pkl plain films. 01/10 22:33 Order name: Basic Metabolic Panel; Complete Time: 23:37 pkl 01/10 22:33 Order name: CBC with Diff; Complete Time: 23:37 pkl 01/10 22:33 Order name: LFT's; Complete Time: 23:37 pkl 01/10 22:33 Order name: Magnesium; Complete Time: 23:37 pkl 01/10 22:33 Order name: NT PRO-BNP; Complete Time: 23:37 pkl 01/10 22:33 Order name: PT-INR; Complete Time: 23:37 pkl 01/10 22:33 Order name: Troponin (emerg Dept Use Only); Complete Time: 23:37 pkl 01/10 22:33 Order name: XRAY Chest (1 view) pkl 01/10 22:33 Order name: ABG; Complete Time: 23:37 pkl 01/10 22:33 Order name: Blood Culture Adult (2) pkl 01/10 22:33 Order name: Lactate; Complete Time: 23:37 pkl 01/10 22:33 Order name: Procalcitonin; Complete Time: 04:56 pkl 01/10 22:33 Order name: EKG; Complete Time: 22:34 pkl 01/10 22:33 Order name: Cardiac monitoring; Complete Time: 23:00 pkl 01/10 22:33 Order name: EKG - Nurse/Tech; Complete Time: 23:00 pkl 01/10 22:33 Order name: IV Saline Lock; Complete Time: 23:00 pkl 01/10 22:33 Order name: Labs collected and sent; Complete Time: 23:00 pkl 01/10 22:33 Order name: O2 Per Protocol; Complete Time: 23:00 pkl 01/10 22:33 Order name: O2 Sat Monitoring; Complete Time: 23:00 pkl Administered Medications: 01/10 23:00 Drug: NS 0.9% 1000 ml Route: IV; Rate: 100 ml/hr; Site: right antecubital; [facility] 01/11 02:09 Follow up: Response: No adverse reaction; IV Status: Infusion continued upon admission j 01/10 23:00 Drug: Xopenex (3) 1.25 mg Route: Inhalation; j 01/11 00:37 Follow up: Response: No adverse reaction j Disposition: 01/11/19 00:40 Hospitalization ordered by Kierra Interiano for Observation. Preliminary diagnosis is Dyspnea. Chronic bronchitis. Failed outpatient therapy. - Bed requested for Telemetry/MedSurg (observation). - Status is Observation. jd3 - Condition is Stable. - Problem is new. - Symptoms are unchanged. UTI on Admission? No Signatures: Dispatcher [employer] EDMS Antionette Pruitt RN RN mw Lam, Pin, MD MD pkl Hannah Shah RN RN ak1 Arthur Walters RN RN jd3 Corrections: (The following items were deleted from the chart) 01:32 00:40 Hospitalization Ordered by Kierra Interiano MD for Observation. Preliminary mw diagnosis is Dyspnea. Chronic bronchitis. Failed outpatient therapy. Bed requested for Telemetry/MedSurg (observation). Status is Observation. Condition is Stable. Problem is new. Symptoms are unchanged. UTI on Admission? No. pkl 02:02 01:32 01/11/2019 00:40 Hospitalization Ordered by Kierra Interiano MD for Observation. jd3 Preliminary diagnosis is Dyspnea. Chronic bronchitis. Failed outpatient therapy. Bed requested for Telemetry/MedSurg (observation). Status is Observation. Condition is Stable. Problem is new. Symptoms are unchanged. UTI on Admission? No. mw
[2019-01-11] MEDS ORDERED: IPRATROPIUM BROM 0.5MG/2.5ML NEB PRN (02:20)
[2019-01-11] MEDS ORDERED: ALBUTEROL 2.5 MG/3 ML NEB SOL NEB PRN ×2 (02:20→13:07)
[2019-01-11 02:22] VITALS: BMI 26.9
[2019-01-11] MEDS ORDERED: METHYLPREDNISOLONE 125 MG INJ IV ONE (02:32)
--- NOTE | 2019-01-11 05:42 | P.HP ---
Certification for Inpatient Patient admitted to: Observation With expected LOS: <2 Midnights Practitioner: I am a practitioner with admitting privileges, knowledge of patient current condition, hospital course, and medical plan of care. Services: Services provided to patient in accordance with Admission requirements found in Title 42 Section 412.3 of the Code of Federal Regulations Patient History Date of Service: 01/11/19 Reason for admission: dyspnea, pneumonitis History of Present Illness: Mr Reed is an 88 years old male with history of HTN, GERD, TIA, who start about 1 month ago with progressive SOB associated with dry cough. He states that has been felt febrile on and off all this time but did not measure his temp , he was afebrile at arrival to ED. The patient has visited ER a couple of times during since the symptoms start and also he has seen Dr Fuentes as outpatient, he has tried oral steroid and breathing treatments, but his symptoms did not improved. At my encounter, he was dyspneic, had audible wheezing. Lab work shows leukocytosis 11.4K, with normal lactate and procalcitonin. CXR shows no consolidation, awaiting radiology report. O2 Sat was 96% on RA. Allergies albuterol Adverse Reaction (Verified 01/11/19 03:02) jittery meperidine [From Demerol] Adverse Reaction (Verified 01/11/19 03:02) Itching Home Medications: Cholecalciferol (Vitamin D3) [Vitamin D3] 2,000 unit PO DAILY 01/11/19 Clopidogrel Bisulfate [Plavix] 75 mg PO DAILY 01/11/19 Magnesium Oxide [Mag 0X Tab] 400 mg PO DAILY 01/11/19 Sacubitril/Valsartan [Entresto 49 mg-51 mg Tablet] 1 tab PO BID 01/11/19 - Past Medical/Surgical History Has patient received pneumonia vaccine in the past: Yes Diabetic: No -: GERD -: HTN -: TIA x2 -: Bi cataract sx -: Back sx -: Hernia repair -: R leg sx - Social History Smoking Status: Former smoker Alcohol use: No CD- Drugs: No Caffeine use: Yes Place of Residence: Home Review of Systems 10-point ROS is otherwise unremarkable Physical Examination - Vital Signs Temperature: 98.9 F Blood Pressure: 156/77 Pulse: 100 Respirations: 19 Pulse Ox (%): 97 - Physical Exam General: Alert, In no apparent distress HEENT: Atraumatic, PERRLA, Mucous membr. moist/pink, EOMI, Sclerae nonicteric Neck: Supple, 2+ carotid pulse no bruit, No LAD, Without JVD or thyroid abnormality Respiratory: Diminished, Expiratory wheezes, Rhonchi/gurgles Cardiovascular: Regular rate/rhythm, Normal S1 S2 Gastrointestinal: Normal bowel sounds, No tenderness Musculoskeletal: No tenderness Integumentary: No rashes Neurological: Normal speech, Normal strength at 5/5 x4 extr, Normal tone, Normal affect Lymphatics: No axilla or inguinal lymphadenopathy - Studies Laboratory Data (last 24 hrs) 01/10/19 22:53: PT 10.6, INR 0.89 01/10/19 22:53: WBC 11.4 H D, Hgb 13.4 L, Hct 41.6, Plt Count 223 01/10/19 22:53: Sodium 135 L, Potassium 4.4, BUN 21 H, Creatinine 1.15, Glucose 98, Magnesium 2.2, Total Bilirubin 0.6, AST 26, ALT 27, Alkaline Phosphatase 89 Assessment and Plan - Problems (Diagnosis) (1) Dyspnea Current Visit: Yes Status: Acute Qualifiers: Dyspnea type: shortness of breath Qualified Code(s): R06.02 - Shortness of breath; R06.00 - Dyspnea, unspecified; R06.01 - Orthopnea (2) HTN (hypertension) Current Visit: Yes Status: Acute Qualifiers: Hypertension type: essential hypertension Qualified Code(s): I10 - Essential (primary) hypertension (3) GERD (gastroesophageal reflux disease) Current Visit: Yes Status: Acute Qualifiers: Esophagitis presence: esophagitis presence not specified Qualified Code(s) : K21.9 - Gastro-esophageal reflux disease without esophagitis (4) Interstitial pneumonitis Current Visit: Yes Status: Acute - Plan The patient will be admitted to the hospital due to progressive dyspnea, differential diagnosis include interstitial pneumonitis of no clear etiology yet , will order CT chest, breathing treatments, IV steroids, consult Dr Fuentes. - Advance Directives Does patient have a Living Will: Yes Does patient have a Durable POA for Healthcare: No - Code Status/Comfort Care Code Status Assessed: Yes Code Status: Full Code
[2019-01-11] MEDS ORDERED: METHYLPREDNISOLONE 125 MG INJ IV SCH (06:00)
[2019-01-11 06:10] LABS: Absolute Lymphocytes (CBC) 0.4 K/uL (0.7-4.9); Absolute Monocytes 0.3 K/uL (0.1-1.3); Basophils % 0.6 % (0-1.3); Eosinophils % 1.1 % (0-4.4); Hematocrit 39.8 % (39.6-49.0); Lymphocytes % 3.8 % (15.3-44.8); MPV 8.4 fL (7.6-11.3); Monocytes % 2.6 % (3.3-12.3); RBC Red Blood Cell Count 4.43 M/uL (4.33-5.43)
--- NOTE | 2019-01-11 07:34 | EKG ---
Test Date: 2019-01-10 Test Time: 22:50:46 Television Audio Engineer: IJEOMA MEASUREMENT RESULTS: Intervals: Rate: 96 AL: 158 QRSD: 150 QT: 394 QTc: 497 [place]: P: 9 AL: 158 QRS: -41 T: 113 INTERPRETIVE STATEMENTS: Sinus rhythm with occasional premature ventricular complexes Left axis deviation Left bundle branch block Abnormal ECG Compared to ECG 12/29/2018 10:01:43 Ventricular premature complex(es) now present First degree AV block no longer present Electronically Signed On 01-11-19 07:33:29 CDT by Tejas Mayen
--- NOTE | 2019-01-11 08:18 | RAD REPORT ---
EXAM DESCRIPTION: RAD - Chest Single View - 01/10/2019 11:24 pm CLINICAL HISTORY: Cough;Dyspnea Chest pain. COMPARISON: Chest Pa And Lat (2 Views) dated 01/06/2019; Chest Single View dated 01/06/2019; Chest Pa And Lat (2 Views) dated 12/29/2018; Chest Pa And Lat (2 Views) dated 12/26/2018 FINDINGS: Portable technique limits examination quality. The lungs are grossly clear. The heart is mildly prominent in size. No displaced fractures. IMPRESSION: No acute intrathoracic process suspected.
[2019-01-11] MEDS: ENOXAPARIN 40 MG/0.4 ML SQ SCH (08:36)
--- NOTE | 2019-01-11 08:46 | P.CNS ---
Date of Consult: 01/11/19 Chief Complaint: Shortness of breath History of Present Illness: Patient is 88 years of age failed outpatient therapy for his shortness of breath he has been short of breath for the past month has become progressively worse, came to the emergency room and was Wednesday was discharged doing any better he has been complaining of severe coughing spells no fever chills bring up some mucus is not responded to bronchodilator therapy steroids or Lasix patient is been complaining of orthopnea Allergies albuterol Adverse Reaction (Verified 01/11/19 03:02) jittery meperidine [From Demerol] Adverse Reaction (Verified 01/11/19 03:02) Itching Home Medications: Cholecalciferol (Vitamin D3) [Vitamin D3] 2,000 unit PO DAILY 01/11/19 Clopidogrel Bisulfate [Plavix] 75 mg PO DAILY 01/11/19 Magnesium Oxide [Mag 0X Tab] 400 mg PO DAILY 01/11/19 Sacubitril/Valsartan [Entresto 49 mg-51 mg Tablet] 1 tab PO BID 01/11/19 - Past Medical/Surgical History Diabetic: No -: GERD -: HTN -: TIA x2 -: Bi cataract sx -: Back sx -: Hernia repair -: R leg sx - Social History Smoking Status: Former smoker Alcohol use: No CD- Drugs: No Caffeine use: Yes Place of Residence: Home Review of Systems 10-point ROS is otherwise unremarkable General: Weakness Respiratory: Cough, Shortness of Breath Physical Examination Temp Pulse Resp BP Pulse Ox 97.2 F 95 H 18 160/80 H 95 01/11/19 08:00 01/11/19 08:00 01/11/19 08:00 01/11/19 08:00 01/11/19 08:00 General: Alert, In no apparent distress, Oriented x3 Respiratory: Expiratory wheezes Cardiovascular: No edema, Regular rate/rhythm Laboratory Data (last 24 hrs) 01/10/19 22:53: PT 10.6, INR 0.89 01/10/19 22:53: WBC 11.4 H D, Hgb 13.4 L, Hct 41.6, Plt Count 223 01/10/19 22:53: Sodium 135 L, Potassium 4.4, BUN 21 H, Creatinine 1.15, Glucose 98, Magnesium 2.2, Total Bilirubin 0.6, AST 26, ALT 27, Alkaline Phosphatase 89 - Problems (1) Dyspnea Current Visit: Yes Status: Acute Plan: Patient is 88 years of age admitted with progressive dyspnea unresponsive to bronchodilators steroids denies any cardiac history although he takes continue with bronchodilators reduce dose of steroids 2D echocardiogram chest x-rays clear BNP elevated unremarkable labs although he has hypoxic is probably cardiac I have added diuretic spironolactone room-air saturation is satisfactory Qualifiers: Dyspnea type: shortness of breath Qualified Code(s): R06.02 - Shortness of breath; R06.00 - Dyspnea, unspecified; R06.01 - Orthopnea
--- NOTE | 2019-01-11 09:06 | RAD REPORT ---
EXAM DESCRIPTION: CT - Thorax Wo Con CLINICAL HISTORY: Chest pain pneumonitis COMPARISON: Chest Single View dated 01/10/2019; Chest Pa And Lat (2 Views) dated 01/06/2019 FINDINGS: Mild tree-in-bud opacity is present in right upper lobe most compatible with atypical infe ction. No focal consolidation typical of pneumonia seen. No pleural thickening or pleural effusion. N o pneumothorax. No axillary, mediastinal or hilar adenopathy. No concerning bony finding. No gross upper abdominal finding. All CT scans are performed using dose optimization technique as appropriate and may include automated exposure control or mA/KV adjustment according to patient size. IMPRESSION: Tree-in-bud opacities are seen in the right upper lobe, most compatible with mild atypic al infection.
[2019-01-11 09:15] LABS: Blood Morphology Comment NOT SEEN (NOT SEEN); Platelet Estimate ADEQ; Urine White Blood Cell Casts OK
[2019-01-11] MEDS: SPIRONOLACTONE 25 MG TABLET PO SCH (10:01)
[2019-01-11] MEDS: FUROSEMIDE 20 MG/ 2ML VIAL IV SCH ×2 (10:01→16:46)
[2019-01-11] MEDS: METHYLPREDNISOLONE 40 MG INJ IV SCH ×2 (10:05→16:46)
[2019-01-11 10:20] LABS: Arterial Blood Carboxyhemoglob 1.1 % (0-1.5); Blood Gas Oxyhemoglobin 93.7 % (94-97); Blood O2 Saturation 95.3 % (92-98.5)
--- NOTE | 2019-01-11 12:46 | ECHO ---
HEIGHT: 5 ft 11 in WEIGHT: 193 lb 1.6 oz DATE OF STUDY: 01/11/[address]: Darinel Fuentes MD 2-DIMENSIONAL: YES M.MODE: YES DOPPLER: YES COLOR FLOW: YES TDS: NO PORTABLE: NO DEFINITY: NO BUBBLE STUDY: NO DIAGNOSIS: SHORTNESS OF BREATH CARDIAC HISTORY: CATHERIZATION: YES SURGERY: NO PROSTHETIC VALVE: NO PACEMAKER: NO MEASUREMENTS (cm) DIASTOLIC (NORMALS) SYSTOLIC (NORMALS) IVSd 1.1 (0.6-1.2) LA Diam 3.7 (1.9-4.0) LVEF 60-69% LVIDd 4.8 (3.5-5.7) LVIDs 3.8 (2.0-3.5) %FS 20% LVPWd 1.2 (0.6-1.2) Ao Diam 2.9 (2.0-3.7) 2 DIMENSIONAL ASSESSMENT: RIGHT ATRIUM: NORMAL LEFT ATRIUM: NORMAL RIGHT VENTRICLE: NORMAL LEFT VENTRICLE: NORMAL TRICUSPID VALVE: NORMAL MITRAL VALVE: NORMAL PULMONIC VALVE: NORMAL AORTIC VALVE: NORMAL PERICARDIAL EFFUSION: NONE AORTIC ROOT: NORMAL LEFT VENTRICULAR WALL MOTION: PARADOXICAL SEPTAL MOTION SEEN WITH LEFT BUNDLE BRANCH BLOCK. DOPPLER/COLOR FLOW: TRACE TRICUSPID REGURGITATION. NORMAL RIGHT VENTRICULAR SYSTOLIC PRESSURE. COMMENTS: NORMAL LEFT VENTRICULAR EJECTION FRACTION. PARADOXICAL SEPTAL MOTION. TRACE TRICUSPID REGURGITATION. TECHNOLOGIST: Josephine GIBSON
--- NOTE | 2019-01-11 13:16 | P.PN ---
Subjective Date of Service: 01/11/19 Primary Care Provider: Dr. Cain Chief Complaint: Shortness of breath Subjective: Improving Physical Examination - Vital Signs Temperature: 97.2 F Blood Pressure: 160/80 Pulse: 95 Respirations: 18 Pulse Ox (%): 95 - Physical Exam General: Alert, In no apparent distress, Oriented x3, Cooperative HEENT: Atraumatic Neck: Supple Respiratory: Expiratory wheezes, Inspiratory wheezes Cardiovascular: Normal pulses, Regular rate/rhythm Gastrointestinal: Normal bowel sounds, Soft and benign, Non-distended, No tenderness, No masses, No rebound, No guarding Musculoskeletal: No erythema, No tenderness, No warmth Integumentary: No tenderness/swelling, No erythema, No warmth, No cyanosis Neurological: Normal speech, Normal strength at 5/5 x4 extr, Normal tone, Normal affect - Studies Laboratory Data (last 24 hrs) 01/10/19 22:53: PT 10.6, INR 0.89 01/10/19 22:53: WBC 11.4 H D, Hgb 13.4 L, Hct 41.6, Plt Count 223 01/10/19 22:53: Sodium 135 L, Potassium 4.4, BUN 21 H, Creatinine 1.15, Glucose 98, Magnesium 2.2, Total Bilirubin 0.6, AST 26, ALT 27, Alkaline Phosphatase 89 Medications List Reviewed: Yes Assessment & Plan Discharge Plan: Home Plan to discharge in: 24 Hours Physician Review Additional Text: Impression: Dyspnea etiology undetermined but maybe multifactorial suspect atypical right upper lobe pneumonia versus COPD exacerbation versus acute on chronic systolic CHF History of systolic CHF History of TIA Former tobacco abuse Plan: Dyspnea etiology undetermined but maybe multifactorial suspect atypical right upper lobe pneumonia versus COPD exacerbation versus acute on chronic systolic CHF: Echo shows normal ejection fraction. Patient on Entresto and Aldactone as outpt for likely CHF. Will restart. Patient given extra Lasix today by pulmonology. CT scan reviewed. Atypical infection suspected. Will discuss with pulmonology. Will verify antibiotic medication he was taking at home prior to admission. May need to restart. Will obtain blood and sputum culture results. Will wean off oxygen. Will maintain sats above 90%. COPD medication and treatment initiated. Patient on IV steroids. Recheck chest x-ray tomorrow. Continue to reassess. Suspect discharge in the next 24 hr. History of systolic CHF: Restart home medication History of TIA: Patient on DVT prophylaxis-Lovenox. Will restart Plavix. Former tobacco abuse: Patient no longer smokes. Continue as above. Time Spent Managing Pts Care (In Minutes): 55
[2019-01-11] MEDS: IPRATROPIUM BROM 0.5MG/2.5ML NEB SCH ×2 (14:32→19:51)
[2019-01-11] MEDS: CLOPIDOGREL 75 MG TABLET PO SCH (14:54)
[2019-01-11] MEDS: SACUBITRIL/VALSARTAN 49/51 MG TAB PO SCH ×2 (14:54→20:34)
[2019-01-11] MEDS: ARFORMOTEROL TARTRATE 15 MCG/2 ML VIAL.NEB NEB SCH (19:51)
[2019-01-12] MEDS: METHYLPREDNISOLONE 40 MG INJ IV SCH ×2 (00:10→09:27)
[2019-01-12] MEDS: IPRATROPIUM BROM 0.5MG/2.5ML NEB SCH ×2 (02:00→07:45)
[2019-01-12 04:19] LABS: Absolute Lymphocytes (CBC) 0.5 K/uL (0.7-4.9); Absolute Monocytes 0.5 K/uL (0.1-1.3); Absolute Neutrophil 11.8 K/uL (1.8-8.0); MPV 8.7 fL (7.6-11.3); Monocytes % 3.9 % (3.3-12.3); RBC Red Blood Cell Count 4.22 M/uL (4.33-5.43)
[2019-01-12 04:36] LABS: Magnesium 2.2 mg/dL (1.8-2.4); Potassium 4.6 mmol/L (3.5-5.1)
[2019-01-12 05:34] VITALS: BP 107/62; TEMP 97.9
--- NOTE | 2019-01-12 06:57 | RAD REPORT ---
EXAM DESCRIPTION: RAD - Chest Pa And Lat (2 Views) - 01/12/2019 6:36 am CLINICAL HISTORY: Chest pain, shortness of breath COMPARISON: January 10 TECHNIQUE: PA and lateral views of the chest were obtained. FINDINGS: The lungs are slightly underinflated. No new lung parenchymal process. Heart size is nor mal and central vasculature is within normal limits. No pleural effusion or pneumothorax seen. No a cute bony finding noted. No aortic abnormality. IMPRESSION: No acute cardiopulmonary process. No new finding from comparison.
[2019-01-12] MEDS: ARFORMOTEROL TARTRATE 15 MCG/2 ML VIAL.NEB NEB SCH (07:45)
[2019-01-12] MEDS ORDERED: Levofloxacin500mg IV 500 MG/100 ML BAG IV SCH (07:51)
[2019-01-12 08:24] VITALS: O2SAT 93
--- NOTE | 2019-01-12 08:31 | P.PN ---
Subjective Date of Service: 01/12/19 Primary Care Provider: Dr. Cain Chief Complaint: Shortness of breath Subjective: Improving (Patient is doing much better denies any orthopnea slept well last night no cough sputum chest pain hemoptysis) Review of Systems Unremarkable Physical Examination - Vital Signs Temperature: 97.9 F Blood Pressure: 107/62 Pulse: 100 Respirations: 20 Pulse Ox (%): 92 - Physical Exam General: Alert, Oriented x3 Respiratory: Clear to auscultation bilaterally Cardiovascular: No edema, Normal S1 S2 - Studies Medications List Reviewed: Yes Assessment & Plan - Problems (Diagnosis) (1) Dyspnea Current Visit: Yes Status: Acute Plan: I suspect is congestive heart failure most likely diastolic dysfunction that made him very short of breath doubt sepsis Dc all antibiotics patient can be discharged home on Lasix 80 take 20-40 mg once a day ever to also advised him to restrict fluid intake saturation satisfactory follow with me in 2 weeks continue with entrsto Qualifiers: Dyspnea type: shortness of breath Qualified Code(s): R06.02 - Shortness of breath; R06.00 - Dyspnea, unspecified; R06.01 - Orthopnea Physician Review Additional Text: Impression: Dyspnea etiology undetermined but maybe multifactorial suspect atypical right upper lobe pneumonia versus COPD exacerbation versus acute on chronic systolic CHF History of systolic CHF History of TIA Former tobacco abuse Plan: Dyspnea etiology undetermined but maybe multifactorial suspect atypical right upper lobe pneumonia versus COPD exacerbation versus acute on chronic systolic CHF: Echo shows normal ejection fraction. Patient on Entresto and Aldactone as outpt for likely CHF. Will restart. Patient given extra Lasix today by pulmonology. CT scan reviewed. Atypical infection suspected. Will discuss with pulmonology. Will verify antibiotic medication he was taking at home prior to admission. May need to restart. Will obtain blood and sputum culture results. Will wean off oxygen. Will maintain sats above 90%. COPD medication and treatment initiated. Patient on IV steroids. Recheck chest x-ray tomorrow. Continue to reassess. Suspect discharge in the next 24 hr. History of systolic CHF: Restart home medication History of TIA: Patient on DVT prophylaxis-Lovenox. Will restart Plavix. Former tobacco abuse: Patient no longer smokes. Continue as above.
[2019-01-12] MEDS ORDERED: VITAMIN D 1000 UNIT TAB PO SCH (09:00)
[2019-01-12] MEDS ORDERED: MAGNESIUM OXIDE 400 MG TAB PO SCH (09:00)
[2019-01-12] MEDS: ENOXAPARIN 40 MG/0.4 ML SQ SCH (09:27)
[2019-01-12] MEDS: SACUBITRIL/VALSARTAN 49/51 MG TAB PO SCH (09:27)
[2019-01-12] MEDS: FUROSEMIDE 20 MG/ 2ML VIAL IV SCH (09:27)
[2019-01-12] MEDS: CLOPIDOGREL 75 MG TABLET PO SCH (09:27)
[2019-01-12] MEDS: SPIRONOLACTONE 25 MG TABLET PO SCH (09:27)
--- NOTE | 2019-01-12 10:04 | P.DS ---
Admission Date: 01/11/19 Discharge Date: 01/12/19 Primary Care Provider: Dr. Cain Disposition: ROUTINE DISCHARGE Discharge Condition: FAIR Reason for Admission: Shortness of breath Consultations: Pulmonary-Dr. Fuentes Procedures: CT chest: COMPARISON: Chest Single View dated 01/10/2019; Chest Pa And Lat (2 Views) dated 01/06/2019 FINDINGS: Mild tree-in-bud opacity is present in right upper lobe most compatible with atypical infection. No focal consolidation typical of pneumonia seen. No pleural thickening or pleural effusion. No pneumothorax. No axillary, mediastinal or hilar adenopathy. No concerning bony finding. No gross upper abdominal finding. All CT scans are performed using dose optimization technique as appropriate and may include automated exposure control or mA/KV adjustment according to patient size. IMPRESSION: Tree-in-bud opacities are seen in the right upper lobe, most compatible with mild atypical infection. Follow up CXR: COMPARISON: January 10 TECHNIQUE: PA and lateral views of the chest were obtained. FINDINGS: The lungs are slightly underinflated. No new lung parenchymal process. Heart size is normal and central vasculature is within normal limits. No pleural effusion or pneumothorax seen. No acute bony finding noted. No aortic abnormality. IMPRESSION: No acute cardiopulmonary process. No new finding from comparison ECHO: EF 60-69% LEFT VENTRICULAR WALL MOTION: PARADOXICAL SEPTAL MOTION SEEN WITH LEFT BUNDLE BRANCH BLOCK. DOPPLER/COLOR FLOW: TRACE TRICUSPID REGURGITATION. NORMAL RIGHT VENTRICULAR SYSTOLIC PRESSURE. COMMENTS: NORMAL LEFT VENTRICULAR EJECTION FRACTION. PARADOXICAL SEPTAL MOTION. TRACE TRICUSPID REGURGITATION. 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 Patient with history of systolic CHF, COPD and hypertension. Patient seen by pulmonology recently. Patient had been treated with steroids and antibiotics recently without any relief. Patient admitted for further evaluation and treatment. Hospital Course: Patient presented with shortness of breath. Shortness of breath suspected related to acute on chronic combined CHF. Patient had been treated with steroids and antibiotic recently as an outpatient. Pulmonology was consulted who had seen the patient as an outpatient. Patient had unremarkable pro calcitonin. During the course of his stay patient received IV steroids and Lasix. Echocardiogram showed improvement of ejection fraction of 60% compared to previous. CT scan reviewed with pulmonology. No need for antibiotics during his stay. Case also discussed with cardiology. Patient with prior history of systolic CHF on Entresto. Ejection fraction now improved likely with Entresto. At discharge patient improved with diuresis. Patient not requiring any oxygen at discharge. After discussion with cardiology and pulmonology patient will be discharged home with Lasix 40 mg daily. Patient will continue with a 1500 cc per day fluid restriction and low-salt diet. He is to monitor his weight daily. If his weight increases by more than 5 lb he is to contact pulmonology to further monitor and address. The is to elevate his legs when sitting or lying. Further adjustment may be required and addressed by pulmonology. No need for oral steroids or antibiotics at this time as per pulmonology. He will continue with Entresto one pill twice daily. He will also continue with Symbicort 2 puffs twice daily. Recommend to follow up with pulmonology in 1-2 weeks to follow up this hospitalization. Recommend to follow up with cardiology in 1-2 weeks to further monitor his CHF. Patient with history of systolic CHF. Shortness of breath likely related to acute on chronic systolic CHF. Echocardiogram shows normal ejection fraction. Patient now likely with combined CHF. Case discussed with cardiology. Patient will continue with Entresto one pill twice daily. No need to discontinue medication-Entresto at this time. Patient will continue with Lasix and fluid restriction as above. Patient with history of TIA. Patient will continue with Plavix. Vital Signs/Physical Exam: Temp Pulse Resp BP Pulse Ox 97.9 F 100 H 20 107/62 92 01/12/19 08:31 01/12/19 08:31 01/12/19 08:31 01/12/19 08:31 01/12/19 08:31 General: Alert, In no apparent distress, Oriented x3, Cooperative HEENT: Atraumatic Neck: Supple Respiratory: Expiratory wheezes (Mild) Cardiovascular: Normal pulses, Regular rate/rhythm Gastrointestinal: Normal bowel sounds, Soft and benign, Non-distended, No tenderness, No masses, No rebound, No guarding Musculoskeletal: No erythema, No tenderness, No warmth Integumentary: Tenderness/swelling (Improves swelling to the lower extremities bilateral) Neurological: Normal speech, Normal strength at 5/5 x4 extr, Normal tone, Normal affect Laboratory Data at Discharge: WBC 12.8 K/uL (4.3-10.9) H D 01/12/19 03:34 Hgb 12.8 g/dL (13.6-17.9) L 01/12/19 03:34 Hct 37.0 % (39.6-49.0) L 01/12/19 03:34 Plt Count 223 K/uL (152-406) 01/12/19 03:34 PT 10.6 SECONDS (9.5-12.5) 01/10/19 22:53 INR 0.89 01/10/19 22:53 Sodium 142 mmol/L (136-145) 01/12/19 03:34 Potassium 4.6 mmol/L (3.5-5.1) 01/12/19 03:34 BUN 26 mg/dL (7-18) H 01/12/19 03:34 Creatinine 1.04 mg/dL (0.55-1.3) 01/12/19 03:34 Glucose 138 mg/dL (74-106) H 01/12/19 03:34 Magnesium 2.2 mg/dL (1.8-2.4) 01/12/19 03:34 Total Bilirubin 0.6 mg/dL (0.2-1.0) 01/10/19 22:53 AST 26 U/L (15-37) 01/10/19 22:53 ALT 27 U/L (12-78) 01/10/19 22:53 Alkaline Phosphatase 89 U/L (45-117) 01/10/19 22:53 Home Medications: Cholecalciferol (Vitamin D3) [Vitamin D3] 2,000 unit PO DAILY 01/11/19 Clopidogrel Bisulfate [Plavix*] 75 mg PO DAILY 01/11/19 Magnesium Oxide [Mag 0X*] 400 mg PO DAILY 01/11/19 Sacubitril/Valsartan [Entresto 49 mg-51 mg Tablet] 1 tab PO BID 01/11/19 Budesonide/Formoterol Fumarate [Symbicort 160-4.5 Mcg Inhaler] 2 puff IH BID #1 hfa.aer.ad 01/12/19 Furosemide 40 mg PO DAILY #30 tablet 01/12/19 New Medications: Budesonide/Formoterol Fumarate [Symbicort 160-4.5 Mcg Inhaler] 2 puff IH BID #1 hfa.aer.ad Furosemide 40 mg PO DAILY #30 tablet Patient Discharge Instructions: 1. Patient presented with shortness of breath. Shortness of breath suspected related to acute on chronic combined CHF. Patient had been treated with steroids and antibiotic recently as an outpatient. Pulmonology was consulted who had seen the patient as an outpatient. Patient had unremarkable pro calcitonin. During the course of his stay patient received IV steroids and Lasix. Echocardiogram showed improvement of ejection fraction of 60% compared to previous. CT scan reviewed with pulmonology. No need for antibiotics during his stay. Case also discussed with cardiology. Patient with prior history of systolic CHF on Entresto. Ejection fraction now improved likely with Entresto. At discharge patient improved with diuresis. Patient not requiring any oxygen at discharge. After discussion with cardiology and pulmonology patient will be discharged home with Lasix 40 mg daily. Patient will continue with a 1500 cc per day fluid restriction and low-salt diet. He is to monitor his weight daily. If his weight increases by more than 5 lb he is to contact pulmonology to further monitor and address. The is to elevate his legs when sitting or lying. Further adjustment may be required and addressed by pulmonology. No need for oral steroids or antibiotics at this time as per pulmonology. He will continue with Entresto one pill twice daily. He will also continue with Symbicort 2 puffs twice daily. Recommend to follow up with pulmonology in 1-2 weeks to follow up this hospitalization. Recommend to follow up with cardiology in 1-2 weeks to further monitor his CHF. 2. Patient with history of systolic CHF. Shortness of breath likely related to acute on chronic systolic CHF. Echocardiogram shows normal ejection fraction. Patient now likely with combined CHF. Case discussed with cardiology. Patient will continue with Entresto one pill twice daily. No need to discontinue medication-Entresto at this time. Patient will continue with Lasix and fluid restriction as above. 3. Patient with history of TIA. Patient will continue with Plavix. Diet: AHA Activity: Ad ana Time spent managing pt's care (in minutes): 55
== END 2019-01-12 11:53 | disposition home or self-care (01) ==
LOC: ER 21:33 → ERHOLD 01-11 00:46 → 4TH 01-11 01:46
PROVIDERS: ADMIT Internal Medicine; ATTEND Internal Medicine
DX: R06.00 Dyspnea, unspecified (principal); I10 Essential (primary) hypertension; I11.0 Hypertensive heart disease with heart failure; I50.22 Chronic systolic (congestive) heart failure; Z86.73 Personal history of transient ischemic attack (TIA), and cerebral infarction without residual deficits; Z87.891 Personal history of nicotine dependence
CPT/HCPCS: 96361; 93005; 93306; 87040 ×2; 87070; 85025 ×3; 80048 ×3; 36415 ×2; 83735 ×2; 87205; 85610; 80076; 83605; 84484; 84145; 83880; 71250; 71045; 71046; 97116; 97163; 97530; 94640; 82805 ×2; 96360; 99285; J1940 ×3; J1650 ×2; J7605 ×2; J7030; J2930 ×2; J2920 ×4; G0378 ×2

== ENCOUNTER 2019-02-01 21:37 | Observation (INO) | payer OTHER ==
[2019-02-01 22:49] LABS: Absolute Lymphocytes (CBC) 1.2 K/uL (0.7-4.9); Absolute Monocytes 1.3 K/uL (0.1-1.3); Basophils % 1.2 % (0-1.3); Hematocrit 39.7 % (39.6-49.0); Lymphocytes % 11.1 % (15.3-44.8); MPV 8.4 fL (7.6-11.3); Monocytes % 12.2 % (3.3-12.3); RBC Red Blood Cell Count 4.38 M/uL (4.33-5.43)
[2019-02-01 22:53] LABS: Protime INR 0.92
[2019-02-01] MEDS ORDERED: LEVALBUTEROL 1.25 MG/3 ML NEB ONE ×2 (22:59→23:44)
[2019-02-01 23:21] LABS: ALT/SGPT 23 U/L (12-78); AST/SGOT 22 U/L (15-37); Albumin 3.4 g/dL (3.4-5.0); Alkaline Phosphatase 74 U/L (45-117); BUN Blood Urea Nitrogen 29 mg/dL (7-18); Bicarbonate 25 mmol/L (21-32); Bilirubin Direct 0.2 mg/dL (0-0.2); Bilirubin Total 0.7 mg/dL (0.2-1.0); CKMB Creatine Kinase MB 7.7 ng/mL (0.3-3.6); Glucose Level 98 mg/dL (74-106); Lipase 160 U/L (73-393); Potassium 4.2 mmol/L (3.5-5.1); Sodium Level 138 mmol/L (136-145); Troponin (Emerg Dept Use Only) < 0.02 ng/mL (0.0-0.045)
[2019-02-01] MEDS ORDERED: Levofloxacin500mg IV 500 MG/100 ML BAG IV ONE (23:44)
[2019-02-01] MEDS ORDERED: predniSONE 20 MG TAB ONE (23:44)
[2019-02-01] MEDS ORDERED: IPRATROPIUM BROM 0.5MG/2.5ML ONE (23:44)
[2019-02-01] MEDS ORDERED: NA CHLORIDE 0.9% 1,000 ML IV SCH (23:45)
--- NOTE | 2019-02-01 23:49 | ER ---
Nurse's Notes [facility] Name: Gamal Reed Age: 88 yrs Sex: Male : 1930 Arrival Date: 02/01/2019 Time: 21:42 Bed 2 Private MD: Emerson Cain T Diagnosis: Chronic obstructive pulmonary disease with (acute) exacerbation Presentation: 02/01 21:51 Presenting complaint: Patient states: "I've been in here 3 times and they diagnosed it aj1 as COPD, I discussed it with the popcorn machine operator and they right away diagnosed it as walking pneumonia. They put me on antibiotics and steroids. I got better for a few days but now its come back." Patient appears short of breath, tachypneic. Reports productive cough. Denies fever. Transition of care: patient was not received from another setting of care. Onset of symptoms was February 01, 2019. Risk Assessment: Do you want to hurt yourself or someone else? Patient reports no desire to harm self or others. 21:51 Method Of Arrival: Ambulatory aj1 21:51 Acuity: KELSY 2 aj1 22:07 Initial Sepsis Screen: Does the patient meet any 2 criteria? RR > 20 per min. HR > 90 aj1 bpm. Yes Does the patient have a suspected source of infection? Yes: Productive cough/pneumonia If YES to both, name of provider notified: Jayme Hemphill MD. Care prior to arrival: None. Triage Assessment: 22:11 General: Appears distressed, uncomfortable, Behavior is calm, cooperative, appropriate aj1 for age. Pain: Denies pain. Neuro: Level of Consciousness is awake, alert, obeys commands. Cardiovascular: Patient's skin is warm and dry. Respiratory: Reports shortness of breath on exertion cough that is productive, Airway is patent Respiratory effort is even, labored, Respiratory pattern is regular, symmetrical, tachypnea. Historical: - Allergies: 22:11 Albuterol; aj1 22:11 Demerol; aj1 - Home Meds: 22:11 Plavix 75 mg Oral tab 1 tab once daily [Active]; Prevacid 30 mg Oral cpDR 1 cap 3 times aj1 per day [Active]; Synthroid 75 mcg Oral tab 1 tab once daily [Active]; - PMHx: 22:11 GERD; HTN, GERD, TIA 2012; Hypertension; TIA; aj1 - Immunization history:: Flu vaccine is up to date. - Social history:: Smoking status: Patient/guardian denies using tobacco. - Ebola Screening: : Patient denies travel to an Ebola-affected area in the 21 days before illness onset. Screenin:00 Fall Risk Gait- Weak (10 pts.). tl1 02/02 00:57 Abuse screen: Denies threats or abuse. Denies injuries from another. Nutritional tl1 screening: No deficits noted. Tuberculosis screening: No symptoms or risk factors identified. Assessment: 02/01 23:00 General: Appears distressed, Behavior is calm, cooperative, appropriate for age. Pain: tl1 Denies pain. Neuro: Level of Consciousness is awake, alert, obeys commands, Oriented to person, place, time, situation. Cardiovascular: Denies chest pain, Capillary refill < 3 seconds Patient's skin is warm and dry. Respiratory: Reports shortness of breath at rest cough that is productive, labored breathing Airway is patent Trachea midline Respiratory effort is even, labored, Respiratory pattern is tachypnea Breath sounds with rhonchi bilaterally. Onset: The symptoms/episode began/occurred gradually, the patient has mild shortness of breath. GI: Abdomen is flat, non-distended, Bowel sounds present X 4 quads. Abd is soft and non tender X 4 quads. : No signs and/or symptoms were reported regarding the genitourinary system. EENT: No signs and/or symptoms were reported regarding the EENT system. Derm: No signs and/or symptoms reported regarding the dermatologic system. Vital Signs: 22:09 BP 157 / 99; Pulse 114; Resp 32; Temp 98.1; Pulse Ox 95% on R/A; Weight 82.55 kg (R); aj1 Height 5 ft. 11 in. (180.34 cm) (R); Pain 0/10; 23:12 BP 133 / 107; Pulse 96; Resp 28; Pulse Ox 96% on R/A; tl2 23:50 BP 121 / 66; Pulse 96; Resp 22; Pulse Ox 100% on Nebulizer Mask; Pain 0/10; tl1 02/02 01:00 BP 119 / 72; Pulse 103; Resp 23; Temp 98.2(O); Pulse Ox 95% on R/A; Pain 0/10; tl1 05/08 22:09 Body Mass Index 25.38 (82.55 kg, 180.34 cm) aj1 ED Course: 02/01 21:42 Patient arrived in ED. es 21:43 Emerson Cain MD is Private Physician. es 21:53 Triage completed. aj1 22:11 Arm band placed on Patient placed in an exam room. aj1 22:15 Patient has correct armband on for positive identification. Placed in gown. Bed in low tl1 position. Call light in reach. Side rails up X2. Adult w/ patient. mica splitter on. Pulse ox on. NIBP on. Pillow given. 22:20 EKG done, by ED staff, reviewed by Jayme Hemphill MD. ag4 22:32 Jayme Hemphill MD is Attending Physician. gs 22:52 Chest Single View XRAY In Process Unspecified. EDMS 22:53 Jackie Campbell RN is Primary Nurse. tl1 23:47 Berhane Bartholomew MD is Hospitalizing Provider. 02/02 00:58 No provider procedures requiring assistance completed. Patient admitted, IV remains in tl1 place. Administered Medications: 02/01 22:47 Drug: Xopenex 1.25 mg Route: Inhalation; tl2 23:55 Follow up: Response: No adverse reaction; Marked relief of symptoms; Other; tl1 respirations have decreased, breathing is less labored 23:38 Drug: Xopenex 1.25 mg Route: Inhalation; tl1 23:56 Follow up: Response: No adverse reaction; Marked relief of symptoms; Other tl1 23:38 Drug: AtroVENT Aerosol 0.5 mg Route: Inhalation; tl1 23:57 Follow up: Response: No adverse reaction; Marked relief of symptoms tl1 23:38 Drug: predniSONE 40 mg Route: PO; tl1 02/02 00:34 Follow up: Response: No adverse reaction; No change in condition tl1 02/01 23:38 Drug: LevaQUIN 500 mg Volume: 100 ml; Route: IVPB; Infused Over: 60 mins; Site: right tl1 antecubital; 02/02 00:34 Follow up: IV Status: Completed infusion tl1 Point of Care Testing: Blood Glucose: 02/01 23:00 Blood Glucose: 113 mg/dL; tl1 Ranges: Outcome: 23:47 Decision to Hospitalize by Provider. gs 02/02 00:59 Admitted to Tele accompanied by nurse, via wheelchair, with chart, Report called to [email or web address] Jeff MATTA Condition: stable Instructed on the need for admit. 01:01 Patient left the ED. tl1 Signatures: Dispatcher [employer] Kylee Whiting RN RN aj1 Tierney Ca Tonya, RN RN tl1 Sherly Mclaughlin RN RN tl2 Jayme Hemphill MD MD gs Guzman, Adan 4
--- NOTE | 2019-02-01 23:49 | EDPHYS ---
Physician Documentation [facility] Name: Gamal Reed Age: 88 yrs Sex: Male : 1930 Arrival Date: 02/01/2019 Time: 21:42 Bed 2 Private MD: Emerson Cain T ED Physician Jayme Hemphill HPI: 02/02 03:04 This 88 yrs old Male presents to ER via Ambulatory with complaints of Chest gs Congestion. 03:04 The patient has shortness of breath at rest, during heavy activity. Onset: The gs symptoms/episode began/occurred 2 week(s) ago, and became worse and became persistent. Duration: The symptoms are continuous. The patient's shortness of breath is aggravated by exertion. Associated signs and symptoms: Pertinent positives: non-productive cough, productive cough. Severity of symptoms: At their worst the symptoms were severe in the emergency department the symptoms are unchanged. The patient has experienced similar episodes in the past, several times. The patient has been recently seen by a physician: a net coordinator, started on abx for pneumonia. Historical: - Allergies: 02/01 22:11 Albuterol; aj1 22:11 Demerol; aj1 - Home Meds: 22:11 Plavix 75 mg Oral tab 1 tab once daily [Active]; Prevacid 30 mg Oral cpDR 1 cap 3 times aj1 per day [Active]; Synthroid 75 mcg Oral tab 1 tab once daily [Active]; - PMHx: 22:11 GERD; HTN, GERD, TIA 2012; Hypertension; TIA; aj1 - Immunization history:: Flu vaccine is up to date. - Social history:: Smoking status: Patient/guardian denies using tobacco. - Ebola Screening: : Patient denies travel to an Ebola-affected area in the 21 days before illness onset. ROS: 02/02 03:04 All other systems are negative. gs Exam: 03:04 Head/Face: Normocephalic, atraumatic. Eyes: Pupils equal round and reactive to light, gs extra-ocular motions intact. Lids and lashes normal. Conjunctiva and sclera are non-icteric and not injected. Cornea within normal limits. Periorbital areas with no swelling, redness, or edema. ENT: Nares patent. No nasal discharge, no septal abnormalities noted. Tympanic membranes are normal and external auditory canals are clear. Oropharynx with no redness, swelling, or masses, exudates, or evidence of obstruction, uvula midline. Mucous membranes moist. Neck: Trachea midline, no thyromegaly or masses palpated, and no cervical lymphadenopathy. Supple, full range of motion without nuchal rigidity, or vertebral point tenderness. No Meningismus. Chest/axilla: Normal chest wall appearance and motion. Nontender with no deformity. No lesions are appreciated. 03:04 Abdomen/GI: Soft, non-tender, with normal bowel sounds. No distension or tympany. No guarding or rebound. No evidence of tenderness throughout. Back: No spinal tenderness. No costovertebral tenderness. Full range of motion. Skin: Warm, dry with normal turgor. Normal color with no rashes, no lesions, and no evidence of cellulitis. MS/ Extremity: Pulses equal, no cyanosis. Neurovascular intact. Full, normal range of motion. Neuro: Awake and alert, GCS 15, oriented to person, place, time, and situation. Cranial nerves II-XII grossly intact. Motor strength 5/5 in all extremities. Sensory grossly intact. Cerebellar exam normal. Normal gait. 03:04 Constitutional: The patient appears alert, awake. 03:04 Cardiovascular: Rate: tachycardic, Rhythm: regular, Pulses: no pulse deficits are appreciated. 03:04 Respiratory: moderate respiratory distress is noted, Respirations: tachypnea, Breath sounds: rales, that are moderate, are located in both bases. 03:04 ECG was reviewed by the Attending Physician. Vital Signs: 02/01 22:09 BP 157 / 99; Pulse 114; Resp 32; Temp 98.1; Pulse Ox 95% on R/A; Weight 82.55 kg (R); aj1 Height 5 ft. 11 in. (180.34 cm) (R); Pain 0/10; 23:12 BP 133 / 107; Pulse 96; Resp 28; Pulse Ox 96% on R/A; tl2 23:50 BP 121 / 66; Pulse 96; Resp 22; Pulse Ox 100% on Nebulizer Mask; Pain 0/10; tl1 02/02 01:00 BP 119 / 72; Pulse 103; Resp 23; Temp 98.2(O); Pulse Ox 95% on R/A; Pain 0/10; tl1 02/01 22:09 Body Mass Index 25.38 (82.55 kg, 180.34 cm) aj1 MDM: 02/01 23:17 Patient medically screened. 02/02 03:04 Differential diagnosis: Bronchitis CHF exacerbation, Chronic Obstructive Pulmonary gs Disease Myocardial Infarction. Data reviewed: vital signs, nurses notes, lab test result(s), EKG, radiologic studies. 03:04 Counseling: I had a detailed discussion with the patient and/or guardian regarding: the historical points, exam findings, and any diagnostic results supporting the discharge/admit diagnosis, the need for further work-up and treatment in the hospital. 02/01 22:33 Order name: Basic Metabolic Panel 02/01 22:33 Order name: Blood Culture Adult (2) 02/01 22:33 Order name: CBC with Diff 02/01 22:33 Order name: Ckmb 02/01 22:33 Order name: Lactate; Complete Time: 23:17 02/01 22:33 Order name: LFT's; Complete Time: 23:26 02/01 22:33 Order name: Lipase; Complete Time: 23:26 02/01 22:33 Order name: Procalcitonin; Complete Time: 23:26 02/01 22:33 Order name: Protime (+inr); Complete Time: 23:17 02/01 22:33 Order name: Troponin (emerg Dept Use Only); Complete Time: 23:26 02/01 22:33 Order name: Urine Microscopic Only 02/01 22:33 Order name: Basic Metabolic Panel; Complete Time: 23:26 [facility] 02/01 22:34 Order name: Blood Culture [facility] 02/01 22:34 Order name: CBC with Automated Diff; Complete Time: 23:17 [facility] 02/01 22:33 Order name: Chest Single View XRAY 02/01 22:33 Order name: Cardiac monitoring; Complete Time: 22:36 02/01 22:33 Order name: EKG - Nurse/Tech; Complete Time: 22:36 02/01 22:33 Order name: IV Saline Lock - Large Bore; Complete Time: 22:38 02/01 22:33 Order name: Labs collected and sent; Complete Time: 22:38 02/01 22:33 Order name: O2 Per Protocol; Complete Time: 22:38 02/01 22:33 Order name: O2 Sat Monitoring; Complete Time: 22:38 02/01 22:34 Order name: CKMB Creatine Kinase MB; Complete Time: 23:26 EDMS 02/01 23:02 Order name: Glucose, Ancillary Testing; Complete Time: 23:17 EDMS 02/01 23:26 Order name: CPK gs EC:04 Rate is 106 beats/min. Rhythm is regular. NM interval is normal. QRS interval is gs prolonged. QT interval is prolonged. T waves are Inverted. Clinical impression: Abnormal EKG without significant change. Interpreted by me. Administered Medications: 02/01 22:47 Drug: Xopenex 1.25 mg Route: Inhalation; tl2 23:55 Follow up: Response: No adverse reaction; Marked relief of symptoms; Other; tl1 respirations have decreased, breathing is less labored 23:38 Drug: Xopenex 1.25 mg Route: Inhalation; tl1 23:56 Follow up: Response: No adverse reaction; Marked relief of symptoms; Other tl1 23:38 Drug: AtroVENT Aerosol 0.5 mg Route: Inhalation; tl1 23:57 Follow up: Response: No adverse reaction; Marked relief of symptoms tl1 23:38 Drug: predniSONE 40 mg Route: PO; tl1 02/02 00:34 Follow up: Response: No adverse reaction; No change in condition tl1 02/01 23:38 Drug: LevaQUIN 500 mg Volume: 100 ml; Route: IVPB; Infused Over: 60 mins; Site: right tl1 antecubital; 02/02 00:34 Follow up: IV Status: Completed infusion tl1 Point of Care Testing: Blood Glucose: 02/01 23:00 Blood Glucose: 113 mg/dL; tl1 Ranges: Critical Glucose Levels:Adult <50 mg/dl or >400 mg/dl <40 mg/dl or >180 mg/dl Disposition: 02/02 03:04 Critical Care:. Disposition: 02/01/19 23:47 Hospitalization ordered by Berhane Bartholomew for Inpatient Admission. Preliminary diagnosis is Chronic obstructive pulmonary disease with (acute) exacerbation. - Bed requested for Telemetry/MedSurg (Inpatient). - Status is Inpatient Admission. tl1 - Condition is Stable. - Problem is new. - Symptoms have improved. UTI on Admission? No Critical care time excluding procedures: 03:04 Critical care time: Bedside Care: 10 minutes, Consultation: 10 minutes, Family gs Intervention: 10 minutes. Total time: 30 minutes Signatures: Dispatcher [employer] EDKylee Hollis, RN RN aj1 Antionette Pruitt RN RN Jackie Campbell, RN RN tl1 Sherly Mclaughlin RN RN tl2 Jayme Hemphill MD MD gs Corrections: (The following items were deleted from the chart) 00:03 02/01 23:47 Hospitalization Ordered by Berhane Bartholomew MD for Inpatient Admission. Preliminary diagnosis is Chronic obstructive pulmonary disease with (acute) exacerbation. Bed requested for Telemetry/MedSurg (Inpatient). Status is Inpatient Admission. Condition is Stable. Problem is new. Symptoms have improved. UTI on Admission? No. gs 02/02 01:01 00:03 02/01/2019 23:47 Hospitalization Ordered by Berhane Bartholomew MD for Inpatient tl1 Admission. Preliminary diagnosis is Chronic obstructive pulmonary disease with (acute) exacerbation. Bed requested for Telemetry/MedSurg (Inpatient). Status is Inpatient Admission. Condition is Stable. Problem is new. Symptoms have improved. UTI on Admission? No. mw
[2019-02-02 01:39] VITALS: BMI 25.2
[2019-02-02] MEDS: LEVALBUTEROL 1.25 MG/3 ML NEB NEB SCH ×3 (02:00→14:00)
[2019-02-02] MEDS: IPRATROPIUM BROM 0.5MG/2.5ML NEB SCH ×3 (02:00→14:00)
[2019-02-02] MEDS ORDERED: HYDROCODONE/CHLORPHEN 5 ML/OSYR PO PRN (02:26)
[2019-02-02] MEDS ORDERED: BENZONATATE 100 MG CAP PO PRN (02:26)
[2019-02-02 04:39] LABS: Absolute Lymphocytes (CBC) 0.4 K/uL (0.7-4.9); Absolute Monocytes 0.3 K/uL (0.1-1.3); Basophils % 0.5 % (0-1.3); Eosinophils % 2.1 % (0-4.4); Lymphocytes % 4.5 % (15.3-44.8); MPV 8.1 fL (7.6-11.3); Monocytes % 3.2 % (3.3-12.3); RBC Red Blood Cell Count 3.98 M/uL (4.33-5.43)
[2019-02-02 04:53] LABS: Albumin 2.8 g/dL (3.4-5.0); Bilirubin Total 0.8 mg/dL (0.2-1.0); Potassium 4.5 mmol/L (3.5-5.1); Protein, Total 6.1 g/dL (6.4-8.2)
[2019-02-02 05:11] LABS: Blood Morphology Comment NOT SEEN (NOT SEEN); Platelet Estimate ADEQ; Urine White Blood Cell Casts OK
[2019-02-02 05:51] LABS: Urine Appearance CLEAR; Urine Bilirubin NEGATIVE (NEG); Urine Blood NEGATIVE (NEG); Urine Color YELLOW; Urine Glucose NEGATIVE (NEG); Urine Protein NEGATIVE (NEG); Urine Specific Gravity 1.015 (1.005-1.030); Urine Urobilinogen 0.2 mg/dL (0.2-1.0); Urine pH 6.5 (5.0-7.0)
[2019-02-02 06:02] LABS: Urine Bacteria <20 /HPF (NONE SEEN); Urine Culture Reflex Order NOT NEEDED; Urine RBC NONE SEEN /HPF (NONE SEEN)
--- NOTE | 2019-02-02 06:40 | RAD REPORT ---
EXAM DESCRIPTION: RAD - Chest Single View - 02/01/2019 10:54 pm CLINICAL HISTORY: Cough and congestion, COPD history COMPARISON: January 12, 2019 TECHNIQUE: AP portable chest image was obtained 2246 hours . FINDINGS: No focal mass or consolidation. No failure or volume overload. Lung markings are similar t o comparison. Heart and vasculature are normal. No measurable pleural effusion and no pneumothorax. No acute bony abnormality seen. No acute aortic findings suspected. IMPRESSION: No acute cardiopulmonary process. No significant interval change.
--- NOTE | 2019-02-02 08:34 | EKG ---
Test Date: 2019-02-01 Test Time: 22:09:55 Manager House: [facility] MEASUREMENT RESULTS: Intervals: Rate: 106 IL: 184 QRSD: 140 QT: 386 QTc: 512 Louise: P: 37 IL: 184 QRS: 3 T: 126 INTERPRETIVE STATEMENTS: Sinus tachycardia with premature supraventricular complexes Left bundle branch block Abnormal ECG Compared to ECG 01/10/2019 22:50:46 Atrial premature complex(es) now present Sinus rhythm no longer present Ventricular premature complex(es) no longer present Left-axis deviation no longer present Electronically Signed On 02-02-19 08:33:42 CDT by Enrique Gill
[2019-02-02] MEDS ORDERED: AZITHROMYCIN IV 500 MG in NA CHLORIDE 0.9% 250 ML IVPB SCH (09:00)
[2019-02-02] MEDS ORDERED: CEFTRIAXONE/SWI 1gm 1 GM/10 ML SYR IV SCH (09:00)
[2019-02-02] MEDS ORDERED: ENOXAPARIN 40 MG/0.4 ML SQ SCH (09:00)
[2019-02-02] MEDS ORDERED: CEFTRIAXONE 1 GM/NS 50 ML 1 GM/50 ML BAG IV SCH (09:00)
[2019-02-02 12:01] VITALS: BP 102/59; TEMP 98.4
[2019-02-02 13:00] VITALS: O2SAT 95
--- NOTE | 2019-02-02 14:06 | P.SSS ---
Patient History Date of Service: 02/02/19 History of Present Illness: 88-year-old male with significant past medical history who was admitted to the hospital for COPD exacerbation. Please refer to the admission H and P for further history of present illness. Allergies albuterol Adverse Reaction (Verified 01/11/19 03:02) jittery meperidine [From Demerol] Adverse Reaction (Verified 01/11/19 03:02) Itching Home Medications: Cholecalciferol (Vitamin D3) [Vitamin D3] 2,000 unit PO DAILY 01/11/19 Clopidogrel Bisulfate [Plavix*] 75 mg PO DAILY 01/11/19 Magnesium Oxide [Mag 0X*] 400 mg PO DAILY 01/11/19 Sacubitril/Valsartan [Entresto 49 mg-51 mg Tablet] 1 tab PO BID 01/11/19 Furosemide 40 mg PO DAILY #30 tablet 01/12/19 Benzonatate [Tessalon Perle*] 200 mg PO TID PRN #30 cap 02/02/19 Levalbuterol [Xopenex*] 1.25 mg IH QID 02/02/19 predniSONE [Deltasone*] 10 mg PO BID #10 tab 02/02/19 - Past Medical/Surgical History Has patient received pneumonia vaccine in the past: Yes Diabetic: No -: GERD -: HTN -: TIA x2 -: CVA x2 -: Bi cataract sx -: Back sx -: Hernia repair -: R leg sx - Social History Smoking Status: Former smoker Alcohol use: Yes CD- Drugs: No Caffeine use: Yes Place of Residence: Home Review of Systems 10-point ROS is otherwise unremarkable Physical Examination - Vital Signs Temperature: 98.4 F Blood Pressure: 102/59 Pulse: 93 Respirations: 16 Pulse Ox (%): 98 - Physical Exam General: Alert, In no apparent distress HEENT: Atraumatic, PERRLA, Mucous membr. moist/pink, EOMI, Sclerae nonicteric Neck: Supple, 2+ carotid pulse no bruit, No LAD, Without JVD or thyroid abnormality Respiratory: Clear to auscultation bilaterally, Normal air movement Cardiovascular: Regular rate/rhythm, Normal S1 S2 Gastrointestinal: Normal bowel sounds, No tenderness Musculoskeletal: No tenderness Integumentary: No rashes Neurological: Normal gait, Normal speech, Normal strength at 5/5 x4 extr, Normal tone, Normal affect Lymphatics: No axilla or inguinal lymphadenopathy - Studies Laboratory Data (last 24 hrs) 02/01/19 22:13: PT 10.9, INR 0.92 02/01/19 22:13: WBC 10.5, Hgb 13.0 L, Hct 39.7, Plt Count 266 02/01/19 22:13: Sodium 138, Potassium 4.2, BUN 29 H, Creatinine 1.19, Glucose 98 , Total Bilirubin 0.7, AST 22, ALT 23, Alkaline Phosphatase 74, Lipase 160 Treatment Summary: Overall during the hospital stay patient remained stable Patient was initially admitted to the hospital for COPD exacerbation was started on duo nebs, steroids, oxygen. Did well overall. Was weaned off of oxygen. And was able to ambulate without dyspnea and was tolerating his diet well. At that time the decision was made to discharge the patient after observing him for 24 hr. COPD exacerbation most likely secondary to viral illness. Patient was asked to follow up with primary care provider along with fitness manager. Patient was also given a prescription for prednisone to be taken for next 10 day - Disposition Disposition: ROUTINE DISCHARGE Condition: GOOD Diet: Regular Activity: Ad ana
--- NOTE | 2019-02-02 23:57 | P.HP ---
Certification for Inpatient Patient admitted to: Observation With expected LOS: <2 Midnights Patient will require the following post-hospital care: None Practitioner: I am a practitioner with admitting privileges, knowledge of patient current condition, hospital course, and medical plan of care. Services: Services provided to patient in accordance with Admission requirements found in Title 42 Section 412.3 of the Code of Federal Regulations Patient History Date of Service: 02/02/19 Reason for admission: COPD exacerbation History of Present Illness: Patient is an 88-year-old gentleman who came into the hospital with difficulty breathing. He has been wheezing and coughing along with being congested. His symptoms were not improving so he came into the ER for further evaluation. He was slightly hypoxic in the emergency room. After being given nebs and steroids he started feeling much better. He will be admitted to the hospital for further treatment. Allergies albuterol Adverse Reaction (Verified 01/11/19 03:02) jittery meperidine [From Demerol] Adverse Reaction (Verified 01/11/19 03:02) Itching Home Medications: Cholecalciferol (Vitamin D3) [Vitamin D3] 2,000 unit PO DAILY 01/11/19 Clopidogrel Bisulfate [Plavix*] 75 mg PO DAILY 01/11/19 Magnesium Oxide [Mag 0X*] 400 mg PO DAILY 01/11/19 Sacubitril/Valsartan [Entresto 49 mg-51 mg Tablet] 1 tab PO BID 01/11/19 Furosemide 40 mg PO DAILY #30 tablet 01/12/19 Benzonatate [Tessalon Perle*] 200 mg PO TID PRN #30 cap 02/02/19 Levalbuterol [Xopenex*] 1.25 mg IH QID 02/02/19 predniSONE [Deltasone*] 10 mg PO BID #10 tab 02/02/19 - Past Medical/Surgical History Has patient received pneumonia vaccine in the past: Yes Diabetic: No -: GERD -: HTN -: TIA x2 -: CVA x2 -: Bi cataract sx -: Back sx -: Hernia repair -: R leg sx - Social History Smoking Status: Former smoker Alcohol use: Yes CD- Drugs: No Caffeine use: Yes Place of Residence: Home Review of Systems 10-point ROS is otherwise unremarkable Physical Examination - Vital Signs Temperature: 98.4 F Blood Pressure: 102/59 Pulse: 93 Respirations: 16 Pulse Ox (%): 98 - Physical Exam General: Alert, In no apparent distress, Oriented x3 HEENT: Atraumatic, PERRLA, Mucous membr. moist/pink, EOMI, Sclerae nonicteric Neck: Supple, 2+ carotid pulse no bruit, No LAD, Without JVD or thyroid abnormality Respiratory: Diminished, Expiratory wheezes Cardiovascular: Regular rate/rhythm, Normal S1 S2, No murmurs Gastrointestinal: Normal bowel sounds, Soft and benign, Non-distended, No tenderness Musculoskeletal: No tenderness Integumentary: No rashes Neurological: Normal gait, Normal speech, Normal strength at 5/5 x4 extr, Normal tone, Normal affect Lymphatics: No axilla or inguinal lymphadenopathy Assessment & Plan - Problems (Diagnosis) (1) COPD with acute exacerbation Status: Acute (2) HTN (hypertension) Status: Acute Qualifiers: Hypertension type: essential hypertension Qualified Code(s): I10 - Essential (primary) hypertension (3) Interstitial pneumonitis Status: Acute - Plan Plan: 1. Continue with nebs, steroids, and antibiotics 2. O2 per protocol 3. Monitor on telemetry 4. Repeat chest x-ray in the morning 5. GI and DVT pro Discharge Plan: Home Plan to discharge in: 24 Hours - Advance Directives Does patient have a Living Will: Yes Does patient have a Durable POA for Healthcare: No - Code Status/Comfort Care Code Status Assessed: Yes Code Status: Full Code Critical Care: No Time Spent Managing PTS Care (In Minutes): 45
[2019-02-03] MEDS ORDERED: METHYLPREDNISOLONE 125 MG INJ IV SCH (01:00)
== END 2019-02-02 15:05 | disposition home or self-care (01) ==
LOC: ER 21:37 → INTOOBSV 23:56 → ERHOLD 23:56 → 4TH 02-02 00:26
PROVIDERS: ADMIT Hospitalist; ATTEND Hospitalist
DX: J44.1 Chronic obstructive pulmonary disease with (acute) exacerbation (principal); J84.114 Acute interstitial pneumonitis; K21.9 Gastro-esophageal reflux disease without esophagitis; I10 Essential (primary) hypertension; Z86.73 Personal history of transient ischemic attack (TIA), and cerebral infarction without residual deficits; Z87.891 Personal history of nicotine dependence
CPT/HCPCS: 96365 ×2; 93005; 87040 ×2; 87070; 85025 ×2; 81001; 80048; 36415; 82550; 87205; 85610; 80061; 82962; 80076; 83605; 84484; 82553; 83690; 80053; 84145; 83880; 71045; 94640; 94760 ×2; 99285; J0456; J1650; J0696; J7030; G0378 ×2; J7512